=== PATIENT | female | born 1995 | race Caucasian/White ===

== ENCOUNTER 2016-04-22 17:32 | Emergency (ER) | payer OTHER ==
--- NOTE | 2016-04-22 18:07 | ED ---
General Adult HPI - General Chief complaint: OB/Uterine Contractions Stated complaint: ABDOMINAL PAIN, Time Seen by Provider: 04/22/16 17:57 Source: patient, RN notes reviewed Mode of arrival: ambulatory Limitations: no limitations - History of Present Illness Initial comments: Patient 20-year-old female who presents emergency room today with chief complaint of right-sided abdominal pain. Patient does admit that she took test at home was positive. Admits that last menstrual cycle was approximately 8 weeks ago. Patient states that she's had abdominal pain for the last 2 days. Patient denies anything that makes it better or worse. Admits to some nausea. Denies any vaginal bleeding or discharge. Patient one previous miscarriage. Patient denies any recent fever, chills, shortness of breath, chest pain, back pain, numbness or tingling, dysuria or hematuria, constipation or diarrhea, headaches or visual changes, or any other complaints. - Related Data Home Medications Medication Instructions Recorded Confirmed No Known Home Medications [No 04/22/16 04/22/16 Known Home Medications] Allergies Allergy/AdvReac Type Severity Reaction Status Date / Time Penicillins Allergy Swelling Verified 04/22/16 17:48 Review of Systems ROS Statement: Those systems with pertinent positive or pertinent negative responses have been documented in the HPI. ROS Other: All systems not noted in ROS Statement are negative. Past Medical History Past Medical History: No Reported History Additional Past Medical History / Comment(s): migraine headaches History of Any Multi-Drug Resistant Organisms: None Reported Past Surgical History: No Surgical Hx Reported Additional Past Surgical History / Comment(s): lip surgery, cyst removed from belly button Past Anesthesia/Blood Transfusion Reactions: No Reported Reaction Past Psychological History: ADD/ADHD, Bipolar, Depression Smoking Status: Former smoker Past Alcohol Use History: None Reported, Daily Past Drug Use History: None Reported General Exam - General Exam Comments Initial Comments: General: The patient is awake and alert, in no distress, and does not appear acutely ill. Eye: Pupils are equal, round and reactive to light, extra-ocular movements are intact. No nystagmus. There is normal conjunctiva bilaterally. No signs of icterus. Ears, nose, mouth and throat: There are moist mucous membranes and no oral lesions. Neck: The neck is supple, there is no tenderness or JVD. Cardiovascular: There is a regular rate and rhythm. No murmur, rub or gallop is appreciated. Respiratory: Lungs are clear to auscultation, respirations are non-labored, breath sounds are equal. No wheezes, stridor, rales, or rhonchi. Gastrointestinal: Soft, non-distended, non-tender abdomen without masses or organomegaly noted. There is no rebound or guarding present. No CVA tenderness. Bowel sounds are unremarkable. Musculoskeletal: Normal ROM, no tenderness. Strength 5/5. Sensation intact. Pulses equal bilaterally 2+. Neurological: A&O x 3. CN II-XII intact, There are no obvious motor or sensory deficits. Coordination appears grossly intact. Speech is normal. Skin: Skin is warm and dry and no rashes or lesions are noted. Psychiatric: Cooperative, appropriate mood & affect, normal judgment. Limitations: no limitations Course Vital Signs 04/22/16 04/22/16 04/22/16 17:34 18:23 18:32 Temperature 97 F L Pulse Rate 75 66 62 Respiratory 20 18 20 Rate Blood Pressure 115/64 109/69 106/61 O2 Sat by Pulse 100 100 100 Oximetry Medical Decision Making - Medical Decision Making Patient reevaluated at this time shows no signs of distress. No vaginal bleeding or discharge. Abdomen soft nontender on exam. Patient's ultrasound reveals no IUP. Does show a possible cystic structure to the left. Patient's pain on the right. Nontender at this time. Patient vitals are stable. Patient 's beta hCG 172. Patient will be discharged home advise close follow-up with OB [facility] in the next 1-2 days. Repeat beta hCG in 2 days. Advised return to emergency room if any symptoms increase worsen or for any other concerns. - Lab Data Result diagrams: 04/22/16 18:15 04/22/16 18:15 Lab Results 04/22/16 04/22/16 04/22/16 Range/Units 18:00 18:15 18:15 WBC 7.7 (4.0-11.0) k/uL RBC 4.29 (3.80-5.40) m/uL Hgb 13.6 (11.4-16.0) gm/dL Hct 40.0 (34.0-46.0) % MCV 93.1 (80.0-100.0) fL MCH 31.7 (25.0-35.0) pg MCHC 34.1 (31.0-37.0) g/dL RDW 12.3 (11.5-15.5) % Plt Count 281 (150-450) k/uL Neutrophils % 62 % Lymphocytes % 28 % Monocytes % 5 % Eosinophils % 3 % Basophils % 1 % Neutrophils # 4.7 (1.3-7.7) k/uL Lymphocytes # 2.1 (1.0-4.8) k/uL Monocytes # 0.4 (0-1.0) k/uL Eosinophils # 0.2 (0-0.7) k/uL Basophils # 0.1 (0-0.2) k/uL Sodium 141 (137-145) mmol/L Potassium 3.9 (3.5-5.1) mmol/L Chloride 106 (98-107) mmol/L Carbon Dioxide 23 (22-30) mmol/L Anion Gap 12 mmol/L BUN 6 L (7-17) mg/dL Creatinine 0.59 (0.52-1.04) mg/dL Est GFR (MDRD) Af Amer >60 (>60 ml/min/1.73 sqM) Est GFR (MDRD) Non-Af >60 (>60 ml/min/1.73 sqM) Glucose 74 (74-99) mg/dL Calcium 9.7 (8.4-10.2) mg/dL Total Bilirubin 0.5 (0.2-1.3) mg/dL AST 17 (14-36) U/L ALT 16 (9-52) U/L Alkaline Phosphatase 40 (38-126) U/L Total Protein 7.7 (6.3-8.2) g/dL Albumin 4.7 (3.5-5.0) g/dL HCG, Quant 172.8 mIU/mL Urine Color Light Yellow Urine Appearance Clear (Clear) Urine pH 7.5 (5.0-8.0) Ur Specific Ross 1.008 (1.001-1.035) Urine Protein Negative (Negative) Urine Glucose (UA) Negative (Negative) Urine Ketones Negative (Negative) Urine Blood Negative (Negative) Urine Nitrate Negative (Negative) Urine Bilirubin Negative (Negative) Urine Urobilinogen <2.0 (<2.0) mg/dL Ur Leukocyte Esterase Negative (Negative) Disposition Clinical Impression: Threatened Disposition: HOME SELF-CARE Condition: Good Instructions: Threatened Miscarriage (ED) Additional Instructions: Please follow-up with [facility] over the next 1-2 days. Please have repeat blood tests 2 days. Please return to emergency room if any symptoms increase worsen or for any other concerns. Referrals: Pari Cornejo DO [Primary Care Provider] - 1-2 days Matilde Richard MD [STAFF PHYSICIAN] - 1-2 days Time of Disposition: 19:23
[2016-04-22 18:10] LABS: Appearance,Urine Clear (Clear); Bilirubin,Urine Negative (Negative); Glucose,Urine (UA) Negative (Negative); Ketones,Urine Negative (Negative); Leukocyte Esterase,Urine Negative (Negative); Nitrite,Urine Negative (Negative); PH, Urine 7.5 (5.0-8.0); Protein,Urine Negative (Negative); Specific Gravity,Urine 1.008 (1.001-1.035); UA Billing (MACRO vs. MICRO) CHEM; Urobilinogen,Urine <2.0 mg/dL (<2.0)
[2016-04-22 18:26] LABS: Basophils # (A) 0.1 k/uL (0-0.2); Basophils % (A) 1 %; CH 31.4; CHCM 33.9; Eosinophils # (A) 0.2 k/uL (0-0.7); Eosinophils % (A) 3 %; HDW 2.24; HGB 13.6 gm/dL (11.4-16.0); Luc # (Auto) 0.16; Luc % (Auto) 2; Lymphocytes # (A) 2.1 k/uL (1.0-4.8); Lymphocytes % (A) 28 %; MCH 31.7 pg (25.0-35.0); MCHC 34.1 g/dL (31.0-37.0); MCV 93.1 fL (80.0-100.0); Mean Platelet Volume 7.5; Monocytes # (A) 0.4 k/uL (0-1.0); Monocytes % (A) 5 %; Neutrophils # (A) 4.7 k/uL (1.3-7.7); Neutrophils % (A) 62 %; RBC 4.29 m/uL (3.80-5.40); RDW 12.3 % (11.5-15.5); WBC 7.7 k/uL (4.0-11.0); WBC (Perox) 7.85
[2016-04-22] MEDS ORDERED: SODIUM CHLORIDE 0.9% 1,000 ML IV STA (18:27)
[2016-04-22 18:37] LABS: ALT 16 U/L (9-52); AST 17 U/L (14-36); Alkaline Phosphatase 40 U/L (38-126); Anion Gap 12 mmol/L; Blood Urea Nitrogen 6 mg/dL (7-17); Calcium 9.7 mg/dL (8.4-10.2); Carbon Dioxide 23 mmol/L (22-30); Chloride 106 mmol/L (98-107); Glucose 74 mg/dL (74-99); Non-African American GFR(MDRD) >60 (>60 ml/min/1.73 sqM); Potassium 3.9 mmol/L (3.5-5.1); Sodium 141 mmol/L (137-145); Total Bilirubin 0.5 mg/dL (0.2-1.3); Total Protein 7.7 g/dL (6.3-8.2)
[2016-04-22 18:53] LABS: HCG,Quantitative Serum 172.8 mIU/mL
--- NOTE | 2016-04-22 19:35 | US ---
EXAMINATION TYPE: US OB <=14 wks transvag DATE OF EXAM: 04/22/2016 7:03 PM COMPARISON: NONE CLINICAL HISTORY: Pain. pt states rlq pain x 2 days with prior miscarriage EXAM PERFORMED: Transvaginal (TV) and Transabdominal (TA) EXAM MEASUREMENTS: GESTATIONAL AGE / DATING Physician Established: not established yet Dates by LMP: unknown lmp Dates by First Scan: no previous Dates by Current Scan for: no iup seen on today's scan MATERNAL ANATOMY Uterus: 6.2 x 5.4 x 7.2cm, anteflexed Right Ovary: 4.1 x 2.2 x 2.2cm, wnl Left Ovary: 3.8 x 2.7 x 3.4cm with a 2.3cm solid appearing structure ?corpus luteum v hemorrhagic cys t v other Presence of free fluid: small amount with in the post cds GESTATION / SURVEY IUP: No IUP seen at this time Date of LMP: unknown Beta HcG (if available): n/a at time of exam TECHNOLOGIST IMPRESSION: no iup seen, left ovarian structure and small amount of free fluid warrants short term follow up with serial bhcg IMPRESSION: 1. No intrauterine identified. Ectopic is not excluded. Correlation with beta-hCG and follow-up is recommended. Very early is not excluded. 2. Possible solid lesion within the right ovary. Follow-up ultrasound is recommended.
[2016-04-22 20:03] VITALS: BP 97/63; PULSE 99; RESP 18; TEMP 98
== END 2016-04-22 20:02 | disposition home or self-care (01) ==
LOC: EC 17:32
DX: O20.0 Threatened abortion (principal); Z3A.08 8 weeks gestation of pregnancy; Z88.0 Allergy status to penicillin
CPT/HCPCS: 36415; 76801; 76817; 80053; 81003; 84702; 85025; 87086; 96360; 99284

== ENCOUNTER → 2016-04-25 | Outpatient (CLI) | payer OTHER | END | disposition home or self-care (01) | LOC: LABWHC1 16:27 | PROVIDERS: ATTEND Physician Assistant | DX: O20.0 Threatened abortion (principal) | CPT/HCPCS: 36415; 84702 ==

== ENCOUNTER 2016-05-07 14:13 | Emergency (ER) | payer OTHER ==
[2016-05-07] MEDS ORDERED: SODIUM CHLORIDE 0.9% 1,000 ML IV ONE (14:51)
--- NOTE | 2016-05-07 14:55 | ED ---
General Adult HPI - General Chief complaint: OB/Uterine Contractions Stated complaint: Abd Pain/6 weeks Time Seen by Provider: 05/07/16 14:33 Source: patient, RN notes reviewed, old records reviewed Mode of arrival: ambulatory Limitations: no limitations - History of Present Illness Initial comments: This is a 21-year-old female to the ER for evaluation of abdominal pain. Palpating cramping. Patient is known, non-confirmed IUP. Patient has had 2 ultrasounds and beta lab testing that is showing appropriate increasing per patient. Patient denies dysuria denies abdominal pain denies nausea vomiting. She does have mild abdominal cramping. This is patient's second , she is a - Related Data Home Medications Medication Instructions Recorded Confirmed [id number] Acid 1 cap PO DAILY 05/07/16 05/07/16 [-U Capsule (formulary)] Allergies Allergy/AdvReac Type Severity Reaction Status Date / Time Penicillins Allergy Swelling Verified 05/07/16 14:59 Review of Systems ROS Statement: Those systems with pertinent positive or pertinent negative responses have been documented in the HPI. ROS Other: All systems not noted in ROS Statement are negative. Past Medical History Past Medical History: No Reported History Additional Past Medical History / Comment(s): migraine headaches History of Any Multi-Drug Resistant Organisms: None Reported Past Surgical History: No Surgical Hx Reported Additional Past Surgical History / Comment(s): lip surgery, cyst removed from belly button Past Anesthesia/Blood Transfusion Reactions: No Reported Reaction Past Psychological History: ADD/ADHD, Bipolar, Depression Smoking Status: Former smoker Past Alcohol Use History: None Reported, Daily Past Drug Use History: None Reported General Exam Limitations: no limitations General appearance: alert, in no apparent distress Head exam: Present: atraumatic, normocephalic, normal inspection Eye exam: Present: normal appearance, PERRL, EOMI. Absent: scleral icterus, conjunctival injection, periorbital swelling ENT exam: Present: normal exam, mucous membranes moist Neck exam: Present: normal inspection. Absent: tenderness, meningismus, lymphadenopathy Respiratory exam: Present: normal lung sounds bilaterally. Absent: respiratory distress, wheezes, rales, rhonchi, stridor Cardiovascular Exam: Present: regular rate, normal rhythm, normal heart sounds. Absent: systolic murmur, diastolic murmur, rubs, gallop, clicks GI/Abdominal exam: Present: soft, normal bowel sounds. Absent: distended, tenderness, guarding, rebound, rigid Extremities exam: Present: normal inspection, full ROM, normal capillary refill. Absent: tenderness, pedal edema, joint swelling, calf tenderness Back exam: Present: normal inspection Neurological exam: Present: alert, oriented X3, CN II-XII intact Psychiatric exam: Present: normal affect, normal mood Skin exam: Present: warm, dry, intact, normal color. Absent: rash Course Vital Signs 05/07/16 14:23 Temperature 98.7 F Pulse Rate 81 Respiratory 20 Rate Blood Pressure 112/59 O2 Sat by Pulse 100 Oximetry - Reevaluation(s) Reevaluation #1: 05/07/16 14:55 prior Beta and ultrasounds are evaluated, SHOWING NO IUP, Reevaluation #2: 05/07/16 16:47 Patient's in no acute distress, spoke with right results and findings, patient' s questions are answered Medical Decision Making - Medical Decision Making 21 female here with abdominal cramping positive IUP normal normal , betas aggressively increasing, positive IUP on ultrasound - Lab Data Result diagrams: 05/07/16 15:20 05/07/16 15:20 Lab Results 05/07/16 05/07/16 05/07/16 Range/Units 15:20 15:20 15:20 WBC 7.6 (3.8-10.6) k/uL RBC 3.85 (3.80-5.40) m/uL Hgb 11.9 (11.4-16.0) gm/dL Hct 35.8 (34.0-46.0) % MCV 92.9 (80.0-100.0) fL MCH 30.8 (25.0-35.0) pg MCHC 33.2 (31.0-37.0) g/dL RDW 12.3 (11.5-15.5) % Plt Count 302 (150-450) k/uL Neutrophils % 79 % Lymphocytes % 14 % Monocytes % 5 % Eosinophils % 0 % Basophils % 0 % Neutrophils # 6.0 (1.3-7.7) k/uL Lymphocytes # 1.0 (1.0-4.8) k/uL Monocytes # 0.4 (0-1.0) k/uL Eosinophils # 0.0 (0-0.7) k/uL Basophils # 0.0 (0-0.2) k/uL PT (9.0-12.0) sec INR (<1.1) APTT (22.0-30.0) sec Sodium 140 (137-145) mmol/L Potassium 3.5 (3.5-5.1) mmol/L Chloride 105 (98-107) mmol/L Carbon Dioxide 24 (22-30) mmol/L Anion Gap 11 mmol/L BUN 8 (7-17) mg/dL Creatinine 0.55 (0.52-1.04) mg/dL Est GFR (MDRD) Af Amer >60 (>60 ml/min/1.73 sqM) Est GFR (MDRD) Non-Af >60 (>60 ml/min/1.73 sqM) Glucose 84 (74-99) mg/dL Calcium 9.1 (8.4-10.2) mg/dL Total Bilirubin 0.4 (0.2-1.3) mg/dL AST 15 (14-36) U/L ALT 23 (9-52) U/L Alkaline Phosphatase 33 L (38-126) U/L Total Protein 6.4 (6.3-8.2) g/dL Albumin 3.9 (3.5-5.0) g/dL HCG, Quant 02269.6 mIU/mL Blood Type O Positive Blood Type Recheck No 05/07/16 Range/Units 15:20 WBC (3.8-10.6) k/uL RBC (3.80-5.40) m/uL Hgb (11.4-16.0) gm/dL Hct (34.0-46.0) % MCV (80.0-100.0) fL MCH (25.0-35.0) pg MCHC (31.0-37.0) g/dL RDW (11.5-15.5) % Plt Count (150-450) k/uL Neutrophils % % Lymphocytes % % Monocytes % % Eosinophils % % Basophils % % Neutrophils # (1.3-7.7) k/uL Lymphocytes # (1.0-4.8) k/uL Monocytes # (0-1.0) k/uL Eosinophils # (0-0.7) k/uL Basophils # (0-0.2) k/uL PT 11.1 (9.0-12.0) sec INR 1.1 (<1.1) APTT 25.3 (22.0-30.0) sec Sodium (137-145) mmol/L Potassium (3.5-5.1) mmol/L Chloride (98-107) mmol/L Carbon Dioxide (22-30) mmol/L Anion Gap mmol/L BUN (7-17) mg/dL Creatinine (0.52-1.04) mg/dL Est GFR (MDRD) Af Amer (>60 ml/min/1.73 sqM) Est GFR (MDRD) Non-Af (>60 ml/min/1.73 sqM) Glucose (74-99) mg/dL Calcium (8.4-10.2) mg/dL Total Bilirubin (0.2-1.3) mg/dL AST (14-36) U/L ALT (9-52) U/L Alkaline Phosphatase (38-126) U/L Total Protein (6.3-8.2) g/dL Albumin (3.5-5.0) g/dL HCG, Quant mIU/mL Blood Type Blood Type Recheck - Radiology Data Radiology results: report reviewed (Ultrasound shows positive IUP), image reviewed Disposition Clinical Impression: Intrauterine Disposition: HOME SELF-CARE Condition: Good Instructions: (ED) Referrals: Pari Cornejo DO [Primary Care Provider] - 1-2 days
[2016-05-07 15:52] LABS: Basophils % (A) 0 %; CHCM 33.5; Eosinophils % (A) 0 %; HCT 35.8 % (34.0-46.0); HDW 2.19; HGB 11.9 gm/dL (11.4-16.0); Luc # (Auto) 0.12; Luc % (Auto) 2; Lymphocytes % (A) 14 %; MCH 30.8 pg (25.0-35.0); MCHC 33.2 g/dL (31.0-37.0); MCV 92.9 fL (80.0-100.0); Mean Platelet Volume 6.5; Monocytes # (A) 0.4 k/uL (0-1.0); Monocytes % (A) 5 %; Neutrophils % (A) 79 %; RBC 3.85 m/uL (3.80-5.40); RDW 12.3 % (11.5-15.5); WBC 7.6 k/uL (3.8-10.6); WBC (Perox) 7.69
[2016-05-07 15:55] LABS: ALT 23 U/L (9-52); AST 15 U/L (14-36); Alkaline Phosphatase 33 U/L (38-126); Anion Gap 11 mmol/L; Blood Urea Nitrogen 8 mg/dL (7-17); Calcium 9.1 mg/dL (8.4-10.2); Carbon Dioxide 24 mmol/L (22-30); Chloride 105 mmol/L (98-107); Glucose 84 mg/dL (74-99); Non-African American GFR(MDRD) >60 (>60 ml/min/1.73 sqM); Potassium 3.5 mmol/L (3.5-5.1); Sodium 140 mmol/L (137-145); Total Bilirubin 0.4 mg/dL (0.2-1.3); Total Protein 6.4 g/dL (6.3-8.2)
[2016-05-07 15:59] LABS: INR 1.1 (<1.1); Partial Thromboplastin Time 25.3 sec (22.0-30.0); Prothrombin Time 11.1 sec (9.0-12.0)
--- NOTE | 2016-05-07 16:26 | US ---
EXAMINATION TYPE: US OB <= 14 wk fetus DATE OF EXAM: 05/07/2016 4:06 PM COMPARISON: Recent ultrasound April 22, 2016 CLINICAL HISTORY: pain. RLQ pain with EXAM PERFORMED: Transabdominal (TA) pelvic ultrasound EXAM MEASUREMENTS: GESTATIONAL AGE / DATING Physician Established: not established Dates by LMP: unknown Dates by First Scan: 2 weeks ago, no IUP seen Dates by Current Scan for: (6 weeks/1 days) EDC: 12/30/2016 MATERNAL ANATOMY Uterus: 10.8 x 6.5 x 8.2 cm Right Ovary: 4.4 x 1.6 x 2.0 cm Left Ovary: 3.6 x 2.4 x 3.6 cm Post CDS / Adnexa: wnl Presence of free fluid: none Presence of corpus luteal cyst: left ovary measuring 2.3 x 2.1 x 2.4 cm GESTATION / SURVEY CRL: 0.4 cm (6 weeks/1 days) Yolk Sac (normal less than 6mm): 0.3 cm Heart Rate: 119 bpm Rhythm: Normal IUP: Viable IUP TECHNOLOGIST IMPRESSION: single viable IUP Single live intrauterine gestation is identified on the current study as gestational sac, yolk sac, a nd pole are identified. heart tones are regular measure 119 bpm which is lower limits of normal. Small amount of free fluid is seen in pelvic cul-de-sac on initial images. Both ovaries are identified. Within the left ovary there is rim hypervascular 2.3 cm hypoechoic lesio n felt to reflect corpus luteal cyst. There is no suspicious solid or cystic extraovarian adnexal mas s. IMPRESSION: Single live intrauterine gestation is now present, mean crown-rump length is 0.4 cm corresponding to 6 week 1 day old fetus.
[2016-05-07 16:36] LABS: HCG,Quantitative Serum 36318.6 mIU/mL
[2016-05-07 17:00] LABS: Amorphous Sediment,Urine Occasional /hpf; Appearance,Urine Cloudy (Clear); Bacteria,Urine Occasional /hpf; Bilirubin,Urine Negative (Negative); Glucose,Urine (UA) Negative (Negative); Ketones,Urine Negative (Negative); Leukocyte Esterase,Urine Negative (Negative); Mucus,Urine Rare /hpf; Nitrite,Urine Negative (Negative); PH, Urine 6.5 (5.0-8.0); Particle Count 3606; Protein,Urine Negative (Negative); RBC,Urine 1 /hpf (0-5); Specific Gravity,Urine 1.013 (1.001-1.035); Squamous Epithelial Cell,Urine 25 /hpf (0-4); UA Billing (MACRO vs. MICRO) MICRO; Urobilinogen,Urine <2.0 mg/dL (<2.0); WBC,Urine 6 /hpf (0-5)
[2016-05-07 17:16] VITALS: BP 107/53; PULSE 80; RESP 16; TEMP 98
== END 2016-05-07 17:15 | disposition home or self-care (01) ==
LOC: EC 14:13
DX: O99.89 Other specified diseases and conditions complicating pregnancy, childbirth and the puerperium (principal); R10.9 Unspecified abdominal pain; Z3A.01 Less than 8 weeks gestation of pregnancy; Z87.891 Personal history of nicotine dependence; Z79.899 Other long term (current) drug therapy; Z88.0 Allergy status to penicillin
CPT/HCPCS: 36415; 76801; 80053; 81001; 84702; 85025; 85610; 85730; 86900; 86901; 87086; 87491; 87591; 96360; 99284

== ENCOUNTER → 2016-06-09 | Outpatient (CLI) | payer OTHER ==
[2016-06-09 14:05] LABS: CH 30.9; CHCM 32.5; HCT 41.3 % (34.0-46.0); HDW 2.06; HGB 13.4 gm/dL (11.4-16.0); MCH 30.8 pg (25.0-35.0); MCHC 32.3 g/dL (31.0-37.0); MCV 95.4 fL (80.0-100.0); Mean Platelet Volume 6.5; RBC 4.33 m/uL (3.80-5.40); RDW 12.5 % (11.5-15.5); WBC 8.4 k/uL (3.8-10.6)
[2016-06-09 14:20] LABS: Glucose 74 mg/dL (74-99); Non-African American GFR(MDRD) >60 (>60 ml/min/1.73 sqM)
[2016-06-09 14:52] LABS: Hepatitis B Surface Ag Index 0.05
[2016-06-10 08:07] LABS: HIV-1/HIV-2 Ab Screen NONREAC (NON REAC)
== END | disposition home or self-care (01) ==
LOC: LABWHC1 13:44
PROVIDERS: ATTEND Obstetrics & Gynecology
DX: O26.811 Pregnancy related exhaustion and fatigue, first trimester (principal); Z3A.00 Weeks of gestation of pregnancy not specified
CPT/HCPCS: 36415; 82565; 82947; 85027; 86762; 86780; 86850; 86900; 86901; 87340; 87389

== ENCOUNTER → 2016-07-04 | Outpatient (CLI) | payer OTHER ==
--- NOTE | 2016-07-05 09:46 | US ---
EXAMINATION TYPE: US OB <= 14 wk fetus DATE OF EXAM: 07/04/2016 2:17 PM COMPARISON: NONE CLINICAL HISTORY: Missed O02.1, Z36 F/U abnormal US. No heart tones at office on Sunday, [facility] eduled for D&C EXAM PERFORMED: OBTA EXAM MEASUREMENTS: GESTATIONAL AGE / DATING Physician Established: not established Dates by LMP: unknown Dates by First Scan: (14 weeks/3 days) EDC: 12/30/2016 Dates by Current Scan for: (9 weeks/4 days) EDC: Not viable MATERNAL ANATOMY Uterus: 16.6 x 9.0 x 7.9cm Right Ovary: not seen due to enlarged UT and bowel gas Left Ovary: wnl Post CDS / Adnexa: wnl Presence of free fluid: no Presence of corpus luteal cyst: not seen Presence of subchorionic bleed: no GESTATION / SURVEY CRL: 2.7 (9 weeks/4 days) MSD: wnl Yolk Sac (normal less than 6mm): not seen Heart Rate: not detected IUP: Demise IMPRESSION: Discrepancy between the last menstrual period and dating by current measurements and nonvisualization of cardiac activity. Intrauterine demise is present.
== END | disposition home or self-care (01) ==
LOC: RADUSWWP 13:56
PROVIDERS: ATTEND Obstetrics & Gynecology
DX: O02.1 Missed abortion (principal)
CPT/HCPCS: 76801

== ENCOUNTER 2016-07-07 07:05 | Day surgery (SDC) | payer OTHER ==
[2016-07-05 12:11] VITALS: BMI 19.6
--- NOTE | 2016-07-06 16:07 | P.HPOB ---
History of Present Illness H&P Date: 07/06/16 Chief Complaint: missed 21 year old presents for suction D&C due to missed . US showed 9 weeks with no heart tones. Review of Systems All systems: negative Constitutional: Denies chills, Denies fever Eyes: denies blurred vision, denies pain Ears, nose, mouth and throat: Denies headache, Denies sore throat Cardiovascular: Denies chest pain, Denies shortness of breath Respiratory: Denies cough Gastrointestinal: Denies abdominal pain, Denies diarrhea, Denies nausea, Denies vomiting Genitourinary: Denies dysuria, Denies hematuria Musculoskeletal: Denies myalgias Integumentary: Denies pruritus, Denies rash Neurological: Denies numbness, Denies weakness Psychiatric: Denies anxiety, Denies depression Endocrine: Denies fatigue, Denies weight change Past Medical History Past Medical History: No Reported History Additional Past Medical History / Comment(s): migraine headaches History of Any Multi-Drug Resistant Organisms: None Reported Past Surgical History: No Surgical Hx Reported Additional Past Surgical History / Comment(s): lip surgery," cyst removed from belly button" Past Anesthesia/Blood Transfusion Reactions: No Reported Reaction Past Psychological History: ADD/ADHD, Bipolar, Depression Smoking Status: Current every day smoker Past Alcohol Use History: Rare Additional Past Alcohol Use History / Comment(s): STARTED SMOKING AT AGE 19 SMOKES 3-4CIG A DAY Past Drug Use History: Marijuana - Past Family History Mother Family Medical History: No Reported History Medications and Allergies Home Medications Medication Instructions Recorded Confirmed Type No Known Home Medications [No 07/05/16 07/05/16 History Known Home Medications] Allergies Allergy/AdvReac Type Severity Reaction Status Date / Time Penicillins Allergy Swelling Verified 07/05/16 11:22 Exam Osteopathic Statement: *. No significant issues noted on an osteopathic structural exam other than those noted in the History and Physical/Consult. HEart: RRR Lungs: CTAB ABdomen: soft, nontender Extremeties: neg lorenza's Assessment and Plan (1) Missed Status: Acute Plan: 1. Suction D&C
[~2016-07-07 07:05] MED LIST: Pre Op ABX Message 1 EACH MISC MISCELLANE ONE
[2016-07-07] MEDS ORDERED: LIDOCAINE 1% 20 ML VIAL (10MG/ML) FOR IV START INTRADERMA ONE (07:29)
[2016-07-07] MEDS ORDERED: LACTATED RINGERS 1,000 ML IV ONE (07:29)
[2016-07-07] MEDS ORDERED: LACTATED RINGERS 1,000 ML IV SCH (07:45)
[2016-07-07] MEDS ORDERED: DEXAMETHASONE SOD PHOSPHATE 10 MG/ML 1 ML VIAL IV ONE (07:45)
[2016-07-07] MEDS ORDERED: HYDROmorphone 1 MG/ML 1 ML SYRINGE IVP PRN (07:45)
[2016-07-07] MEDS ORDERED: ONDANSETRON 4 MG/2 ML VIAL IVP ONE (07:45)
[2016-07-07] MEDS ORDERED: SCOPOLAMINE 1.5MG/72HR PATCH TRANSDERM ONE (07:45)
[2016-07-07] MEDS ORDERED: LIDOCAINE 1% 20 ML VIAL (10MG/ML) FOR IV START INTRADERMA PRN (07:45)
[2016-07-07] MEDS ORDERED: fentaNYL (PF) 50 MCG/ML 2 ML AMP ONE (07:50)
[2016-07-07] MEDS ORDERED: KETOROLAC 30 MG/ML 1 ML VIAL ONE (07:50)
[2016-07-07] MEDS ORDERED: MIDAZOLAM 2 MG/2 ML VIAL ONE (07:50)
[2016-07-07] MEDS ORDERED: PROPOFOL 10 MG/ML 20 ML VIAL IV ONE (07:50)
[2016-07-07] MEDS ORDERED: LIDOCAINE 1% INJ 10MG/ML (20 ML MDV) ONE (07:50)
--- NOTE | 2016-07-07 08:17 | P.OP ---
Date of Procedure: 07/07/16 Preoperative Diagnosis: 1. Missed Postoperative Diagnosis: 1. Missed Procedure(s) Performed: Suction D&C Implants: Anesthesia: MAC Surgeon: Priti Tyson Estimated Blood Loss (ml): 200 IV fluids (ml): 400 Urine output (ml): 50 Pathology: other (Uterine contents) Condition: stable Disposition: PACU Indications for Procedure: Operative Findings: Description of Procedure: Patient taken the operating room where general anesthesia was attained without difficulty. She was prepped and draped in normal sterile fashion in dorsal lithotomy position, legs placed in the candycane stirrups. Bladder was drained of all urine. Weighted speculum placed in the vagina and the anterior lip the cervix was grasped with a single-tooth tenaculum. The cervix was dilated to # 10 Hegar dilator. A #9 curved suction curet was introduced into the uterus and passed several times to remove blood and tissue. At one point there was a piece of tissue hanging out of the cervix and then was grasped with some ring forceps and easily removed. Sharp curet was gently used to ensure all tissue had been removed from the uterus. The suction curet was introduced into the uterus again to ensure all blood and tissue were removed. Excellent hemostasis was assured and all instruments removed from the vagina. Patient tolerated the procedure well, sponge and instrument counts were correct 2 and she was taken to recovery room in stable condition.
[2016-07-07 08:33] VITALS: RESP 18; TEMP 97.2
[2016-07-07 09:16] VITALS: PULSE 71
[2016-07-07 09:40] VITALS: BP 100/68
== END 2016-07-07 10:21 | disposition home or self-care (01) ==
LOC: OR 07:05
PROVIDERS: ATTEND Obstetrics & Gynecology
DX: O02.1 Missed abortion (principal); Z3A.09 9 weeks gestation of pregnancy; F17.210 Nicotine dependence, cigarettes, uncomplicated; Z88.0 Allergy status to penicillin
CPT/HCPCS: 88305; 59820; J2250; J2405; J2001; J3010; J1885; J1170; J2704

== ENCOUNTER 2016-11-09 15:58 | Emergency (ER) | payer OTHER ==
[2016-11-09] MEDS ORDERED: SODIUM CHLORIDE 0.9% 500 ML IV STA (16:50)
[2016-11-09] MEDS ORDERED: PANTOPRAZOLE 40 MG/10 ML VIAL IVP STA (16:50)
[2016-11-09] MEDS ORDERED: SODIUM CHLORIDE 0.9% 1,000 ML IV STA (16:50)
[2016-11-09] MEDS ORDERED: METOCLOPRAMIDE 5 MG/ML 2 ML VIAL IVP STA (16:50)
[2016-11-09] MEDS ORDERED: MAG HYDROX/AL HYDROX/SIMETH 30 ML, HYOSCYAMINE ELIXIR 10 ML, CIMETIDINE HCL 300 MG PO STA ×3 (16:50)
[2016-11-09 17:15] LABS: Appearance,Urine Clear (Clear); Basophils % (A) 1 %; Bilirubin,Urine Negative (Negative); CH 30.8; CHCM 31.9; Eosinophils # (A) 0.1 k/uL (0-0.7); Eosinophils % (A) 2 %; Glucose,Urine (UA) Negative (Negative); HCT 46.3 % (34.0-46.0); HDW 2.07; HGB 14.8 gm/dL (11.4-16.0); Ketones,Urine Negative (Negative); Leukocyte Esterase,Urine Negative (Negative); Luc # (Auto) 0.13; Luc % (Auto) 2; Lymphocytes # (A) 1.4 k/uL (1.0-4.8); Lymphocytes % (A) 23 %; Mean Platelet Volume 6.7; Monocytes # (A) 0.4 k/uL (0-1.0); Monocytes % (A) 7 %; Neutrophils # (A) 4.1 k/uL (1.3-7.7); Neutrophils % (A) 66 %; Nitrite,Urine Negative (Negative); PH, Urine 7.5 (5.0-8.0); Protein,Urine Negative (Negative); RBC 4.78 m/uL (3.80-5.40); RDW 12.2 % (11.5-15.5); Specific Gravity,Urine 1.002 (1.001-1.035); UA Billing (MACRO vs. MICRO) CHEM; Urobilinogen,Urine <2.0 mg/dL (<2.0); WBC 6.3 k/uL (3.8-10.6); WBC (Perox) 6.29
[2016-11-09 17:33] LABS: ALT 25 U/L (9-52); AST 19 U/L (14-36); Alkaline Phosphatase 45 U/L (38-126); Amylase 50 U/L (30-110); Anion Gap 12 mmol/L; Blood Urea Nitrogen 6 mg/dL (7-17); Calcium 9.7 mg/dL (8.4-10.2); Carbon Dioxide 24 mmol/L (22-30); Chloride 104 mmol/L (98-107); Glucose 90 mg/dL (74-99); Non-African American GFR(MDRD) >60 (>60 ml/min/1.73 sqM); Potassium 3.6 mmol/L (3.5-5.1); Sodium 140 mmol/L (137-145); Total Bilirubin 0.4 mg/dL (0.2-1.3); Total Protein 7.3 g/dL (6.3-8.2)
--- NOTE | 2016-11-09 18:14 | ED ---
General Adult HPI - General Chief complaint: Abdominal Pain Stated complaint: abdominal pain Time Seen by Provider: 11/09/16 16:36 Source: patient, family, RN notes reviewed Mode of arrival: ambulatory Limitations: no limitations - History of Present Illness Initial comments: Chief complaint history of present illness is a 21-year-old female who presents with complaint of epigastric discomfort on again off again for 2 weeks. Patient took some Pepto-Bismol earlier which did help but that she vomited. Nausea and vomiting but no diarrhea. Patient states the vomit looked greenish in color did not look like there is blood or coffee ground material in it. She has not had black stool or diarrhea. - Related Data Previous Rx's Medication Instructions Recorded Famotidine [Pepcid] 20 mg PO DAILY #30 tablet 11/09/16 Ondansetron Odt [Zofran Odt] 4 mg PO Q8HR PRN #10 tab 11/09/16 Allergies Allergy/AdvReac Type Severity Reaction Status Date / Time Penicillins Allergy Swelling Verified 11/09/16 17:36 Review of Systems ROS Statement: Those systems with pertinent positive or pertinent negative responses have been documented in the HPI. Review of systems. No headache or visual acuity changes no chest pain. She has epigastric discomfort. Occasionally goes through to the back. No diarrhea. No neuro deficits. All systems are reviewed. Past medical problems migraines. She's had surgeries are D&C this past June. Family history cancers of unknown types. Patient reports she had a rash with penicillin as a child. Patient states she smokes on occasion strongly encouraged to stop. Drinks occasionally 2-3 beers a day. This also was told to stop. ROS Other: All systems not noted in ROS Statement are negative. Past Medical History Past Medical History: No Reported History Additional Past Medical History / Comment(s): migraine headaches History of Any Multi-Drug Resistant Organisms: None Reported Past Surgical History: No Surgical Hx Reported Additional Past Surgical History / Comment(s): lip surgery, cyst removed from belly button Past Anesthesia/Blood Transfusion Reactions: No Reported Reaction Past Psychological History: ADD/ADHD, Bipolar, Depression Smoking Status: Current every day smoker Past Alcohol Use History: Daily Past Drug Use History: None Reported General Exam - General Exam Comments Initial Comments: General: The patient is awake and alert, complaining of epigastric discomfort. Appears to be gastritis. Vital signs temperature 98.4 pulse 59 respiratory rate 18 pulse ox on percent room air blood pressure 116/72 Eye: Pupils are equal, round and reactive to light, extra-ocular movements are intact ; there is normal conjunctiva bilaterally. No signs of icterus. Ears, nose, mouth and throat: There are moist mucous membranes and no oral lesions. Neck: The neck is supple, there is no tenderness or JVD. Cardiovascular: There is a regular rate and rhythm. No murmur, rub or gallop is appreciated. Respiratory: Lungs are clear to auscultation, respirations are non-labored, breath sounds are equal. No wheezes, stridor, rales, or rhonchi. Gastrointestinal: Soft, non-distended, mild tenderness deep palpation of the epigastric region. There is no rebound or guarding present. No CVA tenderness. Bowel sounds are unremarkable. Back: There is no tenderness to palpation in the midline. There is no obvious deformity. No rashes noted. Musculoskeletal: Normal ROM, no tenderness, There is no pedal edema. There is no calf tenderness or swelling. Sensation intact. Pulses equal bilaterally 2+. Neurological: No neuro deficits Skin: Skin is warm and dry and no rashes or lesions are noted. Limitations: no limitations Course Vital Signs 11/09/16 16:30 Temperature 98.4 F Pulse Rate 59 L Respiratory 18 Rate Blood Pressure 116/72 O2 Sat by Pulse 100 Oximetry Medical Decision Making - Medical Decision Making Patient received medications including IV fluids, protonic's, Reglan which made her feel hot and flushed. And GI cocktail. Patient reports is no pain after having had those medications. We did discuss gastritis. Labs show normal white count 6.3 hemoglobin 14.8 hematocrit of 46. Potassium 3.6. BUN 6 creatinine 0.6 GFR greater than 60. Glucose 90. Urine clean no signs of infection. Urine test negative. Discuss gastritis and the patient is to refrain from smoking and no alcohol. Advised not use any nonsteroidal anti-inflammatories and explained why. She is to use antacids as needed one hour after meals and at bedtime. She'll also be placed on Pepcid daily. Advised follow-up with family physician. If she continues having repeated episodes of gastritis endoscopy will be recommended. - Lab Data Result diagrams: 11/09/16 16:54 11/09/16 16:54 Lab Results 11/09/16 11/09/16 11/09/16 Range/Units 16:54 16:54 16:54 WBC 6.3 (3.8-10.6) k/uL RBC 4.78 (3.80-5.40) m/uL Hgb 14.8 (11.4-16.0) gm/dL Hct 46.3 H (34.0-46.0) % MCV 97.0 (80.0-100.0) fL MCH 31.0 (25.0-35.0) pg MCHC 32.0 (31.0-37.0) g/dL RDW 12.2 (11.5-15.5) % Plt Count 330 (150-450) k/uL Neutrophils % 66 % Lymphocytes % 23 % Monocytes % 7 % Eosinophils % 2 % Basophils % 1 % Neutrophils # 4.1 (1.3-7.7) k/uL Lymphocytes # 1.4 (1.0-4.8) k/uL Monocytes # 0.4 (0-1.0) k/uL Eosinophils # 0.1 (0-0.7) k/uL Basophils # 0.0 (0-0.2) k/uL Sodium 140 (137-145) mmol/L Potassium 3.6 (3.5-5.1) mmol/L Chloride 104 (98-107) mmol/L Carbon Dioxide 24 (22-30) mmol/L Anion Gap 12 mmol/L BUN 6 L (7-17) mg/dL Creatinine 0.60 (0.52-1.04) mg/dL Est GFR (MDRD) Af Amer >60 (>60 ml/min/1.73 sqM) Est GFR (MDRD) Non-Af >60 (>60 ml/min/1.73 sqM) Glucose 90 (74-99) mg/dL Calcium 9.7 (8.4-10.2) mg/dL Total Bilirubin 0.4 (0.2-1.3) mg/dL AST 19 (14-36) U/L ALT 25 (9-52) U/L Alkaline Phosphatase 45 (38-126) U/L Total Protein 7.3 (6.3-8.2) g/dL Albumin 4.5 (3.5-5.0) g/dL Amylase 50 (30-110) U/L Lipase 58 (23-300) U/L Urine Color Colorless Urine Appearance Clear (Clear) Urine pH 7.5 (5.0-8.0) Ur Specific [place] 1.002 (1.001-1.035) Urine Protein Negative (Negative) Urine Glucose (UA) Negative (Negative) Urine Ketones Negative (Negative) Urine Blood Negative (Negative) Urine Nitrite Negative (Negative) Urine Bilirubin Negative (Negative) Urine Urobilinogen <2.0 (<2.0) mg/dL Ur Leukocyte Esterase Negative (Negative) Urine HCG, Qual (Not Detectd) 11/09/16 Range/Units 16:54 WBC (3.8-10.6) k/uL RBC (3.80-5.40) m/uL Hgb (11.4-16.0) gm/dL Hct (34.0-46.0) % MCV (80.0-100.0) fL MCH (25.0-35.0) pg MCHC (31.0-37.0) g/dL RDW (11.5-15.5) % Plt Count (150-450) k/uL Neutrophils % % Lymphocytes % % Monocytes % % Eosinophils % % Basophils % % Neutrophils # (1.3-7.7) k/uL Lymphocytes # (1.0-4.8) k/uL Monocytes # (0-1.0) k/uL Eosinophils # (0-0.7) k/uL Basophils # (0-0.2) k/uL Sodium (137-145) mmol/L Potassium (3.5-5.1) mmol/L Chloride (98-107) mmol/L Carbon Dioxide (22-30) mmol/L Anion Gap mmol/L BUN (7-17) mg/dL Creatinine (0.52-1.04) mg/dL Est GFR (MDRD) Af Amer (>60 ml/min/1.73 sqM) Est GFR (MDRD) Non-Af (>60 ml/min/1.73 sqM) Glucose (74-99) mg/dL Calcium (8.4-10.2) mg/dL Total Bilirubin (0.2-1.3) mg/dL AST (14-36) U/L ALT (9-52) U/L Alkaline Phosphatase (38-126) U/L Total Protein (6.3-8.2) g/dL Albumin (3.5-5.0) g/dL Amylase (30-110) U/L Lipase (23-300) U/L Urine Color Urine Appearance (Clear) Urine pH (5.0-8.0) Ur Specific [place] (1.001-1.035) Urine Protein (Negative) Urine Glucose (UA) (Negative) Urine Ketones (Negative) Urine Blood (Negative) Urine Nitrite (Negative) Urine Bilirubin (Negative) Urine Urobilinogen (<2.0) mg/dL Ur Leukocyte Esterase (Negative) Urine HCG, Qual Not Detected (Not Detectd) Disposition Clinical Impression: Acute gastritis Disposition: HOME SELF-CARE Condition: Fair Instructions: Gastritis (ED), Diet for Stomach Ulcers and Gastritis (ED) Additional Instructions: Use antacids as needed, one hour after meals and at bedtime. Take Pepcid daily. Do not use any nonsteroidal anti-inflammatories. Follow with family physician. Recommended she get endoscopy if the gastritis persists for 1 month. Prescriptions: Famotidine [Pepcid] 20 mg PO DAILY #30 tablet Ondansetron Odt [Zofran Odt] 4 mg PO Q8HR PRN #10 tab PRN Reason: Nausea vomiting Referrals: Pari Cornejo DO [Primary Care Provider] - 1-2 days Time of Disposition: 18:14
--- NOTE | 2016-11-09 18:19 | XR ---
EXAMINATION TYPE: XR abdomen 2V DATE OF EXAM: 11/09/2016 COMPARISON: NONE HISTORY: Abdominal pain TECHNIQUE: 2 views FINDINGS: There is no sign of intestinal obstruction or pneumoperitoneum. Fecal pattern is normal. Th ere is oral contrast in the colon. There is no sign of a mass. There are no pathologic calcifications over the kidneys. Lung bases are clear. IMPRESSION: Nonacute abdomen.
[2016-11-09 18:24] VITALS: BP 110/65; PULSE 62; RESP 16; TEMP 98.5
== END 2016-11-09 18:46 | disposition home or self-care (01) ==
LOC: EC 15:58
DX: K29.00 Acute gastritis without bleeding (principal); F17.200 Nicotine dependence, unspecified, uncomplicated; Z88.0 Allergy status to penicillin
CPT/HCPCS: 36415; 80053; 82150; 83690; 85025; 81003; 81025; 87086; 74020; 99284; 96374; 96375; 96361 ×2; J2765; C9113

== ENCOUNTER 2017-06-17 18:12 | Emergency (ER) | payer OTHER ==
[2017-06-17 19:00] VITALS: BP 105/56; PULSE 81; RESP 18; TEMP 98.3
--- NOTE | 2017-06-17 19:38 | XR ---
EXAMINATION TYPE: XR ankle complete RT DATE OF EXAM: 06/17/2017 CLINICAL HISTORY: Fall with pain. TECHNIQUE: Frontal, lateral and oblique images of the right ankle are obtained. COMPARISON: None. FINDINGS: There is no acute fracture/dislocation evident in the right ankle. The ankle mortise appe ars within normal limits. The overlying soft tissue appears unremarkable. IMPRESSION: There is no acute fracture or dislocation in the right ankle.
--- NOTE | 2017-06-17 20:12 | ED ---
General Adult HPI - General Chief complaint: Extremity Injury, Lower Stated complaint: Ankle Injury Time Seen by Provider: 06/17/17 20:04 Source: patient, RN notes reviewed Mode of arrival: wheelchair Limitations: no limitations - History of Present Illness Initial comments: 22-year-old female presents to the emergency department for chief complaint of right ankle injury. Patient states she was walking in the driveway about an hour ago when her mom tried to grab her arm and she just tripped backwards and fell with her right ankle. Patient denies any other injuries. Patient denies hitting her head or losing consciousness. Patient states she doesn't think her ankle is broken and she just thinks it sprained. Patient has never had surgery on the ankle. Patient states she is 20 weeks . Patient has no other complaints at this time including shortness of breath, chest pain, abdominal pain, nausea or vomiting. - Related Data Allergies Allergy/AdvReac Type Severity Reaction Status Date / Time Penicillins Allergy Swelling Verified 06/17/17 19:00 Review of Systems ROS Statement: Those systems with pertinent positive or pertinent negative responses have been documented in the HPI. ROS Other: All systems not noted in ROS Statement are negative. Past Medical History Past Medical History: No Reported History Additional Past Medical History / Comment(s): migraine headaches History of Any Multi-Drug Resistant Organisms: None Reported Past Surgical History: No Surgical Hx Reported Additional Past Surgical History / Comment(s): lip surgery, cyst removed from belly button, D&C Past Anesthesia/Blood Transfusion Reactions: No Reported Reaction Past Psychological History: ADD/ADHD, Bipolar, Depression Smoking Status: Never smoker Past Alcohol Use History: None Reported Past Drug Use History: None Reported General Exam Limitations: no limitations General appearance: alert, in no apparent distress Respiratory exam: Present: normal lung sounds bilaterally. Absent: respiratory distress, wheezes, rales, rhonchi, stridor Cardiovascular Exam: Present: regular rate, normal rhythm, normal heart sounds. Absent: systolic murmur, diastolic murmur, rubs, gallop, clicks Extremities exam: Present: full ROM (Full range of motion of the right ankle including flexion and extension inversion and eversion.), normal capillary refill (Refill less than 2 seconds in the right lower extremity. Pedal pulse 2+ .), other (Full sensation in the right ankle.). Absent: tenderness (very mild tenderness to the medial or lateral malleolus of the right ankle. No tenderness in the rest of the foot.), joint swelling (No swelling or ecchymosis noted of the right ankle.) Course Vital Signs 06/17/17 18:57 Temperature 98.3 F Pulse Rate 81 Respiratory 18 Rate Blood Pressure 105/56 O2 Sat by Pulse 98 Oximetry Medical Decision Making - Medical Decision Making 22-year-old female presents to the emergency department for a chief complaint of right ankle pain 1 hour. Patient states she fell in the driveway in her ankle. Patient denies head injury or any other injuries. There is no swelling or ecchymosis of the ankle. Very minimal tenderness. Patient is able to walk on it. X-ray demonstrates no acute fractures or dislocations. Patient will return to the emergency Department if she has any worsening symptoms. Otherwise she will take Tylenol for pain relief as she is . She was advised not to take Motrin. She will ice the ankle and keep it elevated. Patients ankle was wrapped with an Crow wrap while in the emergency department. She will follow up with primary care in 1-2 days. Disposition Clinical Impression: Ankle injury Disposition: HOME SELF-CARE Instructions: Ankle Sprain (ED) Additional Instructions: Please take Tylenol for pain relief. Do not take Motrin. You may ice, rest, and elevate the ankle. You may keep it wrapped with an Crow wrap. Please return to the emergency department if you have any worsening symptoms. Otherwise follow-up with primary care in 1-2 days. Is patient prescribed a controlled substance at d/c from ED?: No Referrals: Pari Cornejo DO [Primary Care Provider] - 1-2 days Time of Disposition: 20:11
== END 2017-06-17 20:23 | disposition home or self-care (01) ==
LOC: EC 18:12
DX: O9A.212 Injury, poisoning and certain other consequences of external causes complicating pregnancy, second trimester (principal); S99.911A Unspecified injury of right ankle, initial encounter; Z88.0 Allergy status to penicillin; Z3A.20 20 weeks gestation of pregnancy; W01.0XXA Fall on same level from slipping, tripping and stumbling without subsequent striking against object, initial encounter; Y92.093 Driveway of other non-institutional residence as the place of occurrence of the external cause
CPT/HCPCS: 99283

== ENCOUNTER 2017-09-19 16:59 | Outpatient (CLI) | payer OTHER ==
[2017-09-19 18:53] VITALS: BP 111/65; PULSE 83; RESP 18; TEMP 98.1
--- NOTE | 2017-09-20 06:30 | P.MSEPDOC ---
Presenting Problems - Arrival Data Date of Arrival on Unit: 09/19/17 Time of Arrival on Unit: 17:00 Mode of Transport: Ambulatory - Complaint OB-Reason for Admission/Chief Complaint: Pain, Other Comment: period cramps, pt states concerns that her s.o. has Chlamydia, requesting testing. Pt also verbalizes thoughts of self harm with hx of depression since age 15, no current intervention or medication. Medical History - Information : 3 Para: 0 Term: 0 : 0 Abortions: Spontaneous or Elective: 2 Number of Living Children: 0 - Gestational Age Gestational Age by ELISEO (wks/days): 33 Weeks and 3 Days - History Complications: Smoker Review of Systems - Review of Systems Constitutional: No problems Breast: No problems ENT: No problems Cardiovascular: No problems Respiratory: No problems Gastrointestinal: No problems Genitourinary: No problems Musculoskeletal: No problems Neurological: No problems Skin: No problems Vital Signs - Temperature Temperature: 98.1 F Temperature Source: Temporal Artery Scan - Pulse Right Sitting Brachial Pulse Rate: 83 Pulse Assessment Method: Automatic Cuff - Respirations Respiratory Rate: 18 Oxygen Delivery Method: Room Air O2 Sat by Pulse Oximetry: 97 - Blood Pressure Right Arm Sitting Blood Pressure: 111/65 Blood Pressure Mean: 80 Blood Pressure Source: Automatic Cuff Medical Screen Scoring (Pre) - Cervical Exam Dilation: Exam Deferred Effacement: Exam Deferred Membranes: Intact - Uterine Contractions Frequency: < 36 weeks = 6 Duration: > 40 seconds = 2 Intensity: N/A - Maternal Vital Signs Maternal Temperature: N/A Maternal Blood Pressure: N/A Signs of Preeclampsia: N/A Maternal Respirations: N/A - Pain Assessment Pain Scale Used: Numeric (1 - 10) Pain Intensity: 0 Pain Management Goal: 3 Pain Description: Cramping Pain Radiation Location: none Pain Frequency: Occasional Pain Duration: 10 Pain Duration Units: Minutes Pain Behavior: None Exhibited Effects of Pain: none Pain Aggravating Factors: Contractions - Maternal Trauma Maternal Trauma: N/A - Assessment Baseline FHR: 135 Heart Rate - NICHD Category: Category I (Normal) = 0 NST: Reactive Position: N/A, Non-vertex & not laboring = 3 - Total Score Total Score (Pre): 11 - Level of Risk Level of Risk: Medium (6-9) Physician Notification (Pre) - Physician Notified Physician Notified Date: 09/19/17 Physician Notified Time: 18:07 Physician/Practitioner Notifed:: Dr Jones Spoke With: Dr Jones New Order Received: Yes - Notification Comment Comment: Send Chlamydia culture, send FFN. Pt may be discharged to ER for psych eval if FFN negative. Physician Notification (Post) - Notification Comment Comment: Pt to [facility] for psych eval, chlamydia cultures pending. FFN negative. Pt to call for follow up appt with Dr Tyson. Return with continued or increasing symptoms. Disposition - Disposition OB Disposition: Transfer to other dept./facility Transferred to:: [facility] Discharge Date: 09/19/17 Discharge Time: 19:12 I agree with the RN Medical Screening Exam: Yes Risk & Benefit of care provided described in d/c instruction: Yes Diagnosis: FALSE LABOR BEFORE 37 COMPLETED WEEKS OF GEST, THIRD TRI
[2017-09-20 14:36] LABS: C. trachomatis,PCR Negative (Neg,Equiv); Chlamydia trachomatis Source Cervix
== END 2017-09-19 19:13 | disposition home or self-care (01) ==
LOC: FBPOP 16:59
PROVIDERS: ATTEND Obstetrics & Gynecology
DX: O47.03 False labor before 37 completed weeks of gestation, third trimester (principal); O99.333 Smoking (tobacco) complicating pregnancy, third trimester; Z3A.33 33 weeks gestation of pregnancy
CPT/HCPCS: 59025; 82731; 87491; 87591; 99213; 99283

== ENCOUNTER 2017-09-19 19:17 | Emergency (ER) | payer OTHER ==
[2017-09-19 19:31] VITALS: BP 109/69; PULSE 94; RESP 18; TEMP 98.2
--- NOTE | 2017-09-19 19:54 | ED ---
Female Urogenital HPI - General Chief complaint: Urogenital Stated complaint: STD check Time Seen by Provider: 09/19/17 19:28 Source: patient Mode of arrival: ambulatory Limitations: no limitations - History of Present Illness Initial comments: this is a 22-year-old female who is 34 weeks who presents today for chief complaint of STD check. Patient states that she was just a mother baby floor for contractions however she was cleared for discharge. She mentioned to them that she was concerned about STD because her boyfriend was cheating on her. Mother baby called and stated that they were sending her down because of failed depression screening, however patient denies any thoughts of self-harm, increased depression,suicidal or homicidal ideations/plans. patient states that she simply wants a urine STD check, because she just had a pelvic, the baby and they did not perform STD testing. Patient admits clearish discharge, but states that she thinks this is normal. Denies fever, chills, external genitalia irritation, lesions or pain of the external genitalia/vagina, vaginal odor, vaginal bleeding, dysuria, urgency, frequency, abdominal pain, or any other symptoms - Related Data Home Medications Medication Instructions Recorded Confirmed No Known Home Medications 09/19/17 09/19/17 Allergies Allergy/AdvReac Type Severity Reaction Status Date / Time Penicillins Allergy Swelling Verified 09/19/17 19:31 Review of Systems ROS Statement: Those systems with pertinent positive or pertinent negative responses have been documented in the HPI. ROS Other: All systems not noted in ROS Statement are negative. Constitutional: Denies: fever, chills, night sweats ENT: Denies: throat pain Respiratory: Denies: cough Cardiovascular: Denies: chest pain, edema Gastrointestinal: Denies: abdominal pain, nausea, vomiting, diarrhea, constipation Genitourinary: Reports: as per HPI, discharge. Denies: urgency, dysuria, frequency, hematuria Skin: Denies: rash, lesions Past Medical History Past Medical History: No Reported History Additional Past Medical History / Comment(s): migraine headaches History of Any Multi-Drug Resistant Organisms: None Reported Past Surgical History: No Surgical Hx Reported Additional Past Surgical History / Comment(s): lip surgery, cyst removed from belly button, D&C Past Anesthesia/Blood Transfusion Reactions: No Reported Reaction Past Psychological History: ADD/ADHD, Bipolar, Depression Smoking Status: Current every day smoker Past Alcohol Use History: None Reported Past Drug Use History: None Reported General Exam - General Exam Comments Initial Comments: General: The patient is awake and alert, in no distress, and does not appear acutely ill. Eye: Pupils are equal, round and reactive to light, extra-ocular movements are intact. No nystagmus. There is normal conjunctiva bilaterally. No signs of icterus. Ears, nose, mouth and throat: There are moist mucous membranes and no oral lesions. Neck: The neck is supple, there is no tenderness or JVD. Cardiovascular: There is a regular rate and rhythm. No murmur, rub or gallop is appreciated. Respiratory: Lungs are clear to auscultation, respirations are non-labored, breath sounds are equal. No wheezes, stridor, rales, or rhonchi. Gastrointestinal: Soft, non-distended, non-tender abdomen without masses or organomegaly noted. There is no rebound or guarding present. No CVA tenderness. Bowel sounds are unremarkable Neurological: A&O x 3. CN II-XII intact, There are no obvious motor or sensory deficits. Coordination appears grossly intact. Speech is normal. Skin: Skin is warm and dry and no rashes or lesions are noted. Psychiatric: Cooperative, appropriate mood & affect, normal judgment. Pt deferred pelvic exam Limitations: no limitations Course Vital Signs 09/19/17 19:25 Temperature 98.2 F Pulse Rate 94 Respiratory 18 Rate Blood Pressure 109/69 O2 Sat by Pulse 100 Oximetry Medical Decision Making - Medical Decision Making Patient adamantly denies any suicidal or homicidal thoughts or ideations, thoughts or plans of self-harm or increased depression from recent baseline. She states that she has sad because her boyfriend is cheating, but feels this is appropriate emotion. Patient deferred pelvic examination saying that it was painful and she just had one a mother baby floor. She was requesting urine STD check. At this time given patient doesn't think she has symptoms of recurrent STD but is worried because her boyfriend is cheating we will perform a urine STD check and wait for treatment pending results. Patient will follow-up with her [facility] Dr. Tyson in one to 2 days. case was discussed in detail Dr. Treviño who agrees with plan. Pt discharged in stable condition. Disposition Clinical Impression: Concern about STD in female without diagnosis Disposition: HOME SELF-CARE Condition: Good Instructions: Chlamydia (ED) Additional Instructions: PlPlease follow-up with Dr. Herrera in 1-2 days/ Please return to emergency room if the symptoms increase or worsen or for any other concerns. Is patient prescribed a controlled substance at d/c from ED?: No Referrals: Pari Cornejo DO [Primary Care Provider] - 1-2 days Priti Tyson DO [Doctor of Osteopathic Medicine] - 1-2 days Time of Disposition: 19:55
[2017-09-21 13:05] LABS: C. trachomatis,PCR Negative (Neg,Equiv); Chlamydia trachomatis Source Urine; N. gonorrhoeae,PCR Negative (Neg,Equiv); Neisseria Source Urine
== END 2017-09-19 19:59 | disposition home or self-care (01) ==
LOC: EC 19:17
DX: Z20.2 Contact with and (suspected) exposure to infections with a predominantly sexual mode of transmission (principal); O99.333 Smoking (tobacco) complicating pregnancy, third trimester; F17.200 Nicotine dependence, unspecified, uncomplicated; Z88.0 Allergy status to penicillin; Z3A.34 34 weeks gestation of pregnancy
CPT/HCPCS: 87491; 87591; 99283

== ENCOUNTER 2017-10-31 15:13 | Inpatient (IN) | payer OTHER ==
[2017-10-31] MEDS ORDERED: METHYLERGONOVINE 0.2 MG/ML 1 ML AMP IM PRN (15:24)
[2017-10-31] MEDS ORDERED: TERBUTALINE 1 MG/ML VIAL SQ PRN (15:24)
[2017-10-31] MEDS ORDERED: OXYTOCIN 10 UNIT/ML 1 ML VIAL IM PRN (15:24)
[2017-10-31] MEDS ORDERED: CARBOPROST TROMETHAMINE 250 MCG/ML 1 ML AMP IM PRN (15:24)
[2017-10-31] MEDS ORDERED: LIDOCAINE 1% (PF) 10 MG/ML (30 ML SDV) SQ PRN (15:24)
[2017-10-31] MEDS: LACTATED RINGERS 1,000 ML IV SCH ×2 (15:30→19:39)
[2017-10-31] MEDS ORDERED: OXYTOCIN 20 UNITS/1000 ML NS 1,000 ML IV SCH (15:30)
[2017-10-31 15:48] VITALS: BMI 26.6
[2017-10-31 16:08] LABS: Basophils % (A) 0 %; Eosinophils # (A) 0.1 k/uL (0-0.7); Eosinophils % (A) 1 %; HCT 39.3 % (34.0-46.0); HGB 12.3 gm/dL (11.4-16.0); Hypochromasia Slight; Lymphocytes # (A) 1.4 k/uL (1.0-4.8); Lymphocytes % (A) 13 %; MCH 28.6 pg (25.0-35.0); MCHC 31.3 g/dL (31.0-37.0); MCV 91.3 fL (80.0-100.0); Mean Platelet Volume 7.3; Monocytes # (A) 0.5 k/uL (0-1.0); Monocytes % (A) 4 %; Neutrophils % (A) 81 %; Platelet Count 297 k/uL (150-450); RBC 4.31 m/uL (3.80-5.40); RDW 13.4 % (11.5-15.5); WBC 11.1 k/uL (3.8-10.6)
[2017-10-31] MEDS ORDERED: BUTORPHANOL 1 MG/ML 1 ML VIAL IV PRN (16:57)
[2017-10-31] MEDS: CLINDAMYCIN 900 MG in DEXTROSE 5% IN WATER 50 ML IVPB SCH ×2 (17:00)
[2017-10-31 17:30] LABS: Amphetamine Screen,Urine Not Detected (NotDetected); Barbiturate Screen,Urine Not Detected (NotDetected); Benzodiazepines Screen,Urine Not Detected (NotDetected); Cocaine Screen,Urine Not Detected (NotDetected); Methadone Screen, Urine Not Detected (NotDetected); Opiate Screen,Urine Not Detected (NotDetected); Oxycodone Screen, Urine Not Detected (NotDetected); Phencyclidine Screen,Urine Not Detected (NotDetected); Tricyclic Antidepressant,Urine Not Detected (NotDetected); Urn Cannabinoid Scrn Detected (NotDetected)
[2017-10-31] MEDS ORDERED: ROPIVACAINE 5MG/ML 20ML VIAL ONE (19:11)
[2017-10-31] MEDS ORDERED: fentaNYL (PF) 50 MCG/ML 5 ML AMP ONE (19:11)
[2017-10-31] MEDS ORDERED: SODIUM CHLORIDE 0.9% 100 ML BAG ONE (19:11)
[2017-11-01] MEDS: LACTATED RINGERS 1,000 ML IV SCH (00:36)
[2017-11-01] MEDS: CLINDAMYCIN 900 MG in DEXTROSE 5% IN WATER 50 ML IVPB SCH ×2 (00:47)
--- NOTE | 2017-11-01 01:57 | P.HPOB ---
History of Present Illness H&P Date: 10/31/17 Chief Complaint: SROM 22-year-old at 39 weeks and 2 days presented complaining of spontaneous rupture of membranes at 420 in the morning. Her cervix was 1 cm dilated, 80% effaced, and -2 station. She is ngoc irregularly. heart tones 130 -135 with moderate variability and reactive. She did have meconium stained fluid and did not present to labor and delivery until 3:30 in the afternoon. Patient will be admitted for labor. Clindamycin will be started for GBS prophylaxis and Pitocin augmentation will be started as well. Review of Systems All systems: negative Constitutional: Denies chills, Denies fever Eyes: denies blurred vision, denies pain Ears, nose, mouth and throat: Denies headache, Denies sore throat Cardiovascular: Denies chest pain, Denies shortness of breath Respiratory: Denies cough Gastrointestinal: Denies abdominal pain, Denies diarrhea, Denies nausea, Denies vomiting Genitourinary: Denies dysuria, Denies hematuria Musculoskeletal: Denies myalgias Integumentary: Denies pruritus, Denies rash Neurological: Denies numbness, Denies weakness Psychiatric: Denies anxiety, Denies depression Endocrine: Denies fatigue, Denies weight change Past Medical History Past Medical History: No Reported History, GERD/Reflux Additional Past Medical History / Comment(s): migraine headaches. Obstetric history: She has had 2 previous miscarriages. This is her third . She 's had care with me since 9 weeks gestation. Blood type is O+, amylase negative, rubella immune, RPR nonreactive, hepatitis B negative, HIV nonreactive. GBS positive. She did have and the echogenic intracardiac focus on anatomy ultrasound, had normal maternity 21 testing, normal 1 hour glucose tolerance test, normal growth ultrasound at 28 weeks. History of Any Multi-Drug Resistant Organisms: None Reported Past Surgical History: No Surgical Hx Reported Additional Past Surgical History / Comment(s): lip surgery, cyst removed from belly button, D&C Past Anesthesia/Blood Transfusion Reactions: No Reported Reaction Past Psychological History: ADD/ADHD, Depression Smoking Status: Current every day smoker Past Alcohol Use History: None Reported Past Drug Use History: Marijuana Additional Drug Use History / Comment(s): last used a week ago - Past Family History Mother Family Medical History: Renal Disease Medications and Allergies Home Medications Medication Instructions Recorded Confirmed Type No Known Home Medications 09/19/17 10/31/17 History Allergies Allergy/AdvReac Type Severity Reaction Status Date / Time Penicillins Allergy Swelling Verified 10/31/17 15:23 Exam Osteopathic Statement: *. No significant issues noted on an osteopathic structural exam other than those noted in the History and Physical/Consult. Vital Signs Temp Pulse Resp BP Pulse Ox 10/31/17 15:36 97.8 F 96 18 136/81 99 Intake and Output 10/31/17 10/31/17 11/01/17 14:59 22:59 06:59 Intake Total 0 Output Total 200 Balance 1850 Intake: Intake, IV Titration 2049 Amount Clindamycin 900 mg In 50 Dextrose 5% in Water 50 ml @ 50 mls/hr IVPB Q8H GIANNI Rx#:[id number] Lactated Ringers 1,000 ml 2000 @ 125 mls/hr IV .Q8H GIANNI Rx#:[id number] Output: Urine 200 Other: # Voids 2 Weight 63.957 kg Heart: Regular rate and rhythm Lungs: Clear to auscultation bilaterally Abdomen: Soft, nontender Extremities: Negative Homans sign Results Result Diagrams: 10/31/17 15:25 Abnormal Lab Results - Last 24 Hours (Table) 10/31/17 10/31/17 Range/Units 15:25 17:05 WBC 11.1 H (3.8-10.6) k/uL Neutrophils # 9.0 H (1.3-7.7) k/uL U Marijuana (THC) Screen Detected H (NotDetected) Assessment and Plan (1) Spontaneous rupture of amniotic membranes Current Visit: Yes Status: Acute Code(s): [id number] - SNOMED Code(s): 519141480 Plan: 1. Admit to family place 2. Clindamycin for GBS prophylaxis 3. Pitocin augmentation 4. Anticipate normal vaginal delivery
[2017-11-01] MEDS ORDERED: LANOLIN CREAM 5 GM TUBE TOPICAL PRN (03:32)
[2017-11-01] MEDS ORDERED: WITCH HAZEL 1 EACH MED..PAD TOPICAL PRN (03:32)
[2017-11-01] MEDS ORDERED: ZOLPIDEM 5 MG TAB PO PRN (03:32)
[2017-11-01] MEDS ORDERED: diphenhydrAMINE 25 MG CAP PO PRN (03:32)
[2017-11-01] MEDS ORDERED: HYDROcodone/APAP 5-325MG 1 EACH TAB PO PRN (03:32)
[2017-11-01] MEDS ORDERED: HYDROCORTISONE 2.5% RECTAL CREAM 30 GM TUBE RECTAL PRN (03:32)
[2017-11-01] MEDS ORDERED: diphenhydrAMINE 50 MG CAP PO PRN (03:32)
[2017-11-01] MEDS ORDERED: diphenhydrAMINE 50 MG/ML 1 ML VIAL IVP PRN ×2 (03:32)
[2017-11-01] MEDS ORDERED: BENZOCAINE/MENTHOL SPRAY 1 GM/SPRAY AEROSOL TOPICAL PRN (03:32)
[2017-11-01] MEDS ORDERED: ACETAMINOPHEN TAB 325 MG TAB PO PRN (03:32)
[2017-11-01] MEDS ORDERED: SIMETHICONE 80 MG CHEWABLE PO PRN (03:32)
--- NOTE | 2017-11-01 03:32 | P.PROBDLV ---
Vaginal Delivery Note - . Vaginal Delivery Note: 22 year old presents at 39 weeks 2 days with spontaneous rupture of membranes at 420 am. She presented to L&D at 330pm. HEr cervix was 1-2cm dilated, 80% effaced, and -2 station. She was ngoc irregularly. heart tones 130 135 with moderate variability and reactive. Clindamycin was started for GBS prophylaxis and Pitocin augmentation was started. When she was uncomfortable and ngoc every few minutes, and her cervix made change to 2 -1/2 cm, she did get an epidural. She was also noted to have meconium stained fluid. Her cervix was completely dilated by 2:50 AM. She pushed, and delivered a viable female over intact perineum under epidural anesthesia at 3:03 AM. Head delivered OA, anterior shoulder delivered gentle downward guidance followed by posterior shoulder and rest of body. Nose and mouth bulb suctioned, cord clamped and cut, and infant placed on mother's abdomen. Apgars 7, 9, weight 7 lbs. 4 oz. Placenta delivered spontaneously, intact with three- vessel cord at 3:12 AM. Vagina, cervix, and perineum were inspected. Left labial laceration was repaired with 3-0 Vicryl. Estimated blood loss 200 mL. Mother and baby in stable condition.
[2017-11-01] MEDS ORDERED: KETOROLAC 30 MG/ML 1 ML VIAL IVP STA (03:41)
[2017-11-01] MEDS ORDERED: ONDANSETRON 4 MG/2 ML VIAL IVP STA (03:42)
[2017-11-01] MEDS ORDERED: ONDANSETRON 4 MG/2 ML VIAL IVP PRN (03:43)
[2017-11-01] MEDS ORDERED: OXYTOCIN 20 UNITS/1000 ML NS 1,000 ML IV SCH (03:45)
[2017-11-01] MEDS ORDERED: LIDOCAINE 1% INJ 10MG/ML (20 ML MDV) SQ ONE (03:59)
[2017-11-01] MEDS: SENNOSIDES-DOCUSATE SODIUM 1 EACH TAB PO SCH ×2 (07:50→20:05)
[2017-11-01] MEDS: IBUPROFEN 600 MG TAB PO PRN ×2 (07:50→14:43)
[2017-11-01] MEDS ORDERED: DIPH,PERTUS(ACELL)TETVAC-LF 0.5 ML VIAL IM ONE (19:01)
[2017-11-02 02:04] VITALS: RESP 16
[2017-11-02] MEDS: IBUPROFEN 600 MG TAB PO PRN ×2 (04:00→10:15)
--- NOTE | 2017-11-02 08:51 | P.DS ---
Providers Date of admission: 10/31/17 15:13 Expected date of discharge: 11/02/17 Attending physician: Priti Tyson Primary care physician: Priti Tyson - Discharge Diagnosis(es) (1) Spontaneous rupture of amniotic membranes Current Visit: Yes Status: Resolved (2) Normal vaginal delivery Current Visit: Yes Status: Acute Hospital Course: Patient presented was spent denies rupture membranes. She had Pitocin augmentation and underwent a normal vaginal delivery. Her course was uncomplicated. She'll be discharged home day #1 in stable condition to follow-up with me in 6 weeks. Plan - Discharge Summary New Discharge Prescriptions: No Action No Known Home Medications Discharge Medication List No Known Home Medications 09/19/17 [History]
[2017-11-02] MEDS: SENNOSIDES-DOCUSATE SODIUM 1 EACH TAB PO SCH (10:12)
[2017-11-02 10:42] VITALS: BP 117/70; PULSE 81; TEMP 98.1
== END 2017-11-02 13:45 | disposition home or self-care (01) | DRG 775 ==
LOC: 4FBP 15:13
PROVIDERS: ADMIT Obstetrics & Gynecology; ATTEND Obstetrics & Gynecology
PROC: 10E0XZZ Delivery of Products of Conception, External Approach (ICD-10-PCS; principal; 2017-11-01)
PROC: 0HQ9XZZ Repair Perineum Skin, External Approach (ICD-10-PCS; 2017-11-01)
PROC: 00HU33Z Insertion of Infusion Device into Spinal Canal, Percutaneous Approach (ICD-10-PCS; 2017-11-01)
PROC: 3E0R3BZ Introduction of Anesthetic Agent into Spinal Canal, Percutaneous Approach (ICD-10-PCS; 2017-11-01)
DX: O77.0 Labor and delivery complicated by meconium in amniotic fluid (principal); Z37.0 Single live birth; O99.334 Smoking (tobacco) complicating childbirth; F17.200 Nicotine dependence, unspecified, uncomplicated; O99.344 Other mental disorders complicating childbirth; F32.9 Major depressive disorder, single episode, unspecified; F90.9 Attention-deficit hyperactivity disorder, unspecified type; O70.0 First degree perineal laceration during delivery; O99.62 Diseases of the digestive system complicating childbirth; K21.9 Gastro-esophageal reflux disease without esophagitis; G43.909 Migraine, unspecified, not intractable, without status migrainosus; O75.89 Other specified complications of labor and delivery; Z3A.39 39 weeks gestation of pregnancy; Z88.0 Allergy status to penicillin
CPT/HCPCS: 80306; 85025; 88307

== ENCOUNTER 2019-11-07 21:26 | Emergency (ER) | payer OTHER ==
[2019-11-07 21:34] VITALS: BP 127/89; PULSE 92; RESP 18; TEMP 98.1
[2019-11-07] MEDS ORDERED: PRENATAL VIT-IRON-FOLIC ACID 1 EACH CAP PO STA (22:20)
[2019-11-07 23:14] LABS: Appearance,Urine Cloudy (Clear); Bacteria,Urine Rare /hpf; Bilirubin,Urine Negative (Negative); Blood,Urine Large (Negative); Color,Urine Yellow; Glucose,Urine (UA) Negative (Negative); Ketones,Urine Negative (Negative); Leukocyte Esterase,Urine Trace (Negative); Mucus,Urine Few /hpf; Nitrite,Urine Negative (Negative); Protein,Urine Trace (Negative); RBC,Urine 8 /hpf (0-5); Specific Gravity,Urine 1.026 (1.001-1.035); Squamous Epithelial Cell,Urine 9 /hpf (0-4); Urobilinogen,Urine <2.0 mg/dL (<2.0); WBC,Urine 9 /hpf (0-5)
--- NOTE | 2019-11-07 23:25 | US ---
EXAMINATION TYPE: Transabdominal DATE OF EXAM: 11/07/2019 11:10 PM COMPARISON: NONE CLINICAL HISTORY: cramping, spotting . Pt states cramping, light vaginal bleeding EXAM PERFORMED: Transvaginal (TV) and Transabdominal (TA) EXAM MEASUREMENTS: GESTATIONAL AGE / DATING Physician Established: Not yet established Dates by LMP: (5 weeks/2 days) EDC: 07/07/2020 Dates by First Scan: No prior Dates by Current Scan for: (5 weeks/6 days) EDC: 07/03/2020 MATERNAL ANATOMY Uterus: 8.1 x 4.8 x 5.8 cm Right Ovary: 3.1 x 2.3 x 3.5 cm Left Ovary: 3.4 x 2.0 x 1.9 cm Post CDS / Adnexa: wnl Presence of free fluid: No Presence of corpus luteal cyst: Right Ovary= 2.0 x 1.8 x 1.9 cm Presence of subchorionic bleed: No GESTATION / SURVEY CRL: 0.3 cm (5 weeks/6 days) MSD: 0.6 cm Too early to calculate dates, appeared small for CRL dates Yolk Sac (normal less than 6mm): 3mm Heart Rate: 108 bpm Rhythm: Low heart rate IUP: Viable IUP Date of LMP: 10/01/2019 Beta HcG (if available): Not available at this time Single, viable IUP/ Heart rate low/ Gestational sac appeared small for CRL size IMPRESSION: The ultrasound gestational age is 5 weeks and 6 days.
--- NOTE | 2019-11-08 00:16 | ED ---
General Adult HPI - General Chief complaint: Vaginal Bleeding Stated complaint: Vaginal Bleeding Time Seen by Provider: 11/07/19 22:14 Source: patient, RN notes reviewed, old records reviewed Mode of arrival: ambulatory Limitations: no limitations - History of Present Illness Initial comments: 24-year-old female patient presents to ED for evaluation. Patient reports that her menses are irregular however she last had a normal menses in September. She reports her stay. The past 4 days ago and she was positive. States that for the last 2 days she has had a little bit of spotting and some waxing and waning cramping. Denies any other complaints. She blood type O positive. Systemic: Pt denies fatigue, fever/chills, rash. Pt denies weakness, night swe ats, weight loss. Neuro: Pt denies headache, visual disturbances, syncope or pre-syncope. HEENT: Pt denies ocular discharge or irritation, otalgia, rhinorrhea, pharyngitis or notable lymphadenopathy. Cardiopulmonary: Pt denies chest pain, SOB, heart palpitations, dyspnea on exertion. Abdominal/GI: Pt denies abdominal pain, n/v/d. : Pt denies dysuria, burning w/ urination, frequency/urgency. Denies new onset urinary or bowel incontinence. MSK: Pt denies myalgia, loss of strength or function in extremities. Neuro: Pt denies new onset weakness, paresthesias. - Related Data Previous Rx's Medication Instructions Recorded Ibuprofen [Motrin] 600 mg PO Q6HR PRN #30 tab 11/02/17 Pnv No.95/Ferrous Fum/Folic AC 1 each PO Q24HR 30 Days #30 tablet 11/08/19 [ Multivitamin Tablet] Allergies Allergy/AdvReac Type Severity Reaction Status Date / Time Penicillins Allergy Swelling Verified 11/07/19 21:34 Review of Systems ROS Statement: Those systems with pertinent positive or pertinent negative responses have been documented in the HPI. ROS Other: All systems not noted in ROS Statement are negative. Past Medical History Past Medical History: No Reported History, GERD/Reflux Additional Past Medical History / Comment(s): migraine headaches. Obstetric history: She has had 2 previous miscarriages. This is her third . She's had care with me since 9 weeks gestation. Blood type is O+, amylase negative, rubella immune, RPR nonreactive, hepatitis B negative, HIV nonreactive. GBS positive. She did have and the echogenic intracardiac focus on anatomy ultrasound, had normal maternity 21 testing, normal 1 hour glucose tolerance test, normal growth ultrasound at 28 weeks. History of Any Multi-Drug Resistant Organisms: None Reported Past Surgical History: No Surgical Hx Reported Additional Past Surgical History / Comment(s): lip surgery, cyst removed from belly button, D&C Past Anesthesia/Blood Transfusion Reactions: No Reported Reaction Past Psychological History: ADD/ADHD, Depression Smoking Status: Never smoker Past Alcohol Use History: None Reported Past Drug Use History: Marijuana - Past Family History Mother Family Medical History: Renal Disease General Exam - General Exam Comments Initial Comments: Constitutional: NAD, AOX3, Pt has pleasant affect. HEENT: NC/AT, trachea midline, neck supple, no lymphadenopathy. External ears appear normal, without discharge. Mucous membranes moist. Eyes PERRLA, EOM intact. There is no scleral icterus. No pallor noted. Cardiopulmonary: RRR, no murmurs, rubs or gallops, no JVD noted. Lungs CTAB in anterior and posterior cash. No peripheral edema. Abdominal exam: Abdomen soft and non-distended. Abdomen non-tender to palpation in all 4 quadrants. Bowel sounds active in LLQ. No hepatosplenomegaly. No ecchymosis Neuro: CN II-XII grossly intact. MSK: Full active ROM in upper and lower extremities, 5/5 stregnth. Limitations: no limitations Course Vital Signs 11/07/19 21:29 Temperature 98.1 F Pulse Rate 92 Respiratory 18 Rate Blood Pressure 127/89 O2 Sat by Pulse 100 Oximetry Medical Decision Making - Medical Decision Making 24-year-old female patient who is . Presents to ED for some vaginal spotting and cramping. No discomfort at this time. Patient abdomen soft and nontender. Ultrasound displayed viable . UA is contaminated by squamous cells, will be cultured. Patient prescribed vitamins of discharge and outpatient [facility] follow-up. Case discussed with Dr. Drake. - Lab Data Lab Results 11/07/19 11/07/19 Range/Units 22:44 22:44 Urine Color Yellow Urine Appearance Cloudy H (Clear) Urine pH 6.0 (5.0-8.0) Ur Specific [place] 1.026 (1.001-1.035) Urine Protein Trace H (Negative) Urine Glucose (UA) Negative (Negative) Urine Ketones Negative (Negative) Urine Blood Large H (Negative) Urine Nitrite Negative (Negative) Urine Bilirubin Negative (Negative) Urine Urobilinogen <2.0 (<2.0) mg/dL Ur Leukocyte Esterase Trace H (Negative) Urine RBC 8 H (0-5) /hpf Urine WBC 9 H (0-5) /hpf Ur Squamous Epith Cells 9 H (0-4) /hpf Urine Bacteria Rare H (None) /hpf Urine Mucus Few H (None) /hpf Urine HCG, Qual Detected (Not Detectd) Disposition Clinical Impression: Vaginal bleeding during Disposition: HOME SELF-CARE Condition: Stable Instructions (If sedation given, give patient instructions): Threatened Miscarriage (ED) Additional Instructions: Take vitamins as directed. Follow-up with primary care provider tomorrow. Follow up with metal dresser tomorrow. Return to ER if any worsening symptoms. Prescriptions: Pnv No.95/Ferrous Fum/Folic AC [ Multivitamin Tablet] 1 each PO Q24HR 30 Days #30 tablet Is patient prescribed a controlled substance at d/c from ED?: No Referrals: None,Stated [Primary Care Provider] - 1-2 days
== END 2019-11-08 00:32 | disposition home or self-care (01) ==
LOC: EC 21:26
DX: O20.9 Hemorrhage in early pregnancy, unspecified (principal); Z88.0 Allergy status to penicillin; Z87.59 Personal history of other complications of pregnancy, childbirth and the puerperium; Z3A.01 Less than 8 weeks gestation of pregnancy
CPT/HCPCS: 81001; 81025; 87086; 76801; 76817; 99284; S0197

== ENCOUNTER 2019-11-12 14:57 | Emergency (ER) | payer OTHER ==
[2019-11-12 15:21] VITALS: TEMP 98.3
[2019-11-12 16:05] LABS: Basophils % (A) 1 %; Eosinophils # (A) 0.1 k/uL (0-0.7); Eosinophils % (A) 1 %; HGB 13.2 gm/dL (11.4-16.0); Lymphocytes % (A) 24 %; MCHC 32.2 g/dL (31.0-37.0); MCV 93.1 fL (80.0-100.0); Mean Platelet Volume 6.8; Monocytes # (A) 0.5 k/uL (0-1.0); Monocytes % (A) 6 %; Neutrophils # (A) 5.8 k/uL (1.3-7.7); Neutrophils % (A) 67 %; Platelet Count 314 k/uL (150-450); RBC 4.41 m/uL (3.80-5.40); RDW 11.6 % (11.5-15.5); WBC 8.6 k/uL (3.8-10.6)
--- NOTE | 2019-11-12 16:07 | ED ---
General Adult HPI - General Chief complaint: Abdominal Pain Stated complaint: , Vaginal Bleeding Time Seen by Provider: 11/12/19 15:26 Source: patient, RN notes reviewed Mode of arrival: wheelchair Limitations: no limitations - History of Present Illness Initial comments: 24-year-old female presents to the emergency department for a chief complaint of vaginal bleeding. Patient believes she is about 6 weeks . She reports that she has been vaginally bleeding for about 6 days on and off. Patient reports she does have a confirmed intrauterine . Patient states she is now passing some mild clots and cramping more. Patient denies passing any tissue. Denies lightheadedness.Patient has no other complaints at this time including shortness of breath, chest pain, abdominal pain, nausea or vomiting, headache, or visual changes. - Related Data Previous Rx's Medication Instructions Recorded Ibuprofen [Motrin] 600 mg PO Q6HR PRN #30 tab 11/02/17 Pnv No.95/Ferrous Fum/Folic AC 1 each PO Q24HR 30 Days #30 tablet 11/08/19 [ Multivitamin Tablet] Allergies Allergy/AdvReac Type Severity Reaction Status Date / Time Penicillins Allergy Swelling Verified 11/12/19 15:20 Review of Systems ROS Statement: Those systems with pertinent positive or pertinent negative responses have been documented in the HPI. ROS Other: All systems not noted in ROS Statement are negative. Past Medical History Past Medical History: No Reported History, GERD/Reflux Additional Past Medical History / Comment(s): migraine headaches History of Any Multi-Drug Resistant Organisms: None Reported Past Surgical History: No Surgical Hx Reported Additional Past Surgical History / Comment(s): lip surgery, cyst removed from belly button, D&C Past Anesthesia/Blood Transfusion Reactions: No Reported Reaction Past Psychological History: ADD/ADHD, Depression Smoking Status: Never smoker Past Alcohol Use History: None Reported Past Drug Use History: Marijuana - Past Family History Mother Family Medical History: Renal Disease General Exam Limitations: no limitations General appearance: alert, in no apparent distress Head exam: Present: atraumatic, normocephalic, normal inspection Eye exam: Present: normal appearance, PERRL, EOMI. Absent: scleral icterus, conjunctival injection, periorbital swelling ENT exam: Present: normal exam, mucous membranes moist Neck exam: Present: normal inspection, full ROM. Absent: tenderness, meningismus, lymphadenopathy Respiratory exam: Present: normal lung sounds bilaterally. Absent: respiratory distress, wheezes, rales, rhonchi, stridor Cardiovascular Exam: Present: regular rate, normal rhythm, normal heart sounds. Absent: systolic murmur, diastolic murmur, rubs, gallop, clicks GI/Abdominal exam: Present: soft, normal bowel sounds. Absent: distended, tenderness, guarding, rebound, rigid External exam: Present: normal external exam, other (Candida VOSS present on exam). Absent: erythema, swelling, lesions, lacerations, ecchymosis Speculum exam: Present: vaginal bleeding (Minimal vaginal bleeding noted). Absent: erythema, vaginal discharge, cervical discharge, foreign body, tissue, laceration By manual exam: Present: normal by manual exam. Absent: cervical motion tenderness, adnexal tenderness, adnexal mass, uterine enlargement, uterine tenderness Course Vital Signs 11/12/19 15:18 Temperature 98.3 F Pulse Rate 96 Respiratory 18 Rate Blood Pressure 121/82 O2 Sat by Pulse 98 Oximetry Medical Decision Making - Medical Decision Making Vitals are stable. HPI physical exam is documented. CBC CMP unremarkable. Ultrasound however does show a single intrauterine pole which would measure 6 weeks however cardiac activity is not identified. Yolk sac appears atypical. Intrauterine demise or early should be considered. Patient was noted to have an ultrasound about one week ago that did show cardiac activity. Case was discussed with Dr. Tyson, will see patient on Sunday. She was given return parameters. She will be treated for a urinary tract infection until culture results. - Lab Data Result diagrams: 11/12/19 15:39 11/12/19 15:45 Lab Results 11/12/19 11/12/19 11/12/19 Range/Units 15:39 15:39 15:45 WBC 8.6 (3.8-10.6) k/uL RBC 4.41 (3.80-5.40) m/uL Hgb 13.2 (11.4-16.0) gm/dL Hct 41.0 (34.0-46.0) % MCV 93.1 (80.0-100.0) fL MCH 30.0 (25.0-35.0) pg MCHC 32.2 (31.0-37.0) g/dL RDW 11.6 (11.5-15.5) % Plt Count 314 (150-450) k/uL Neutrophils % 67 % Lymphocytes % 24 % Monocytes % 6 % Eosinophils % 1 % Basophils % 1 % Neutrophils # 5.8 (1.3-7.7) k/uL Lymphocytes # 2.0 (1.0-4.8) k/uL Monocytes # 0.5 (0-1.0) k/uL Eosinophils # 0.1 (0-0.7) k/uL Basophils # 0.0 (0-0.2) k/uL Sodium 139 (137-145) mmol/L Potassium 3.8 (3.5-5.1) mmol/L Chloride 104 (98-107) mmol/L Carbon Dioxide 27 (22-30) mmol/L Anion Gap 8 mmol/L BUN 14 (7-17) mg/dL Creatinine 0.61 (0.52-1.04) mg/dL Est GFR (CKD-EPI)AfAm >90 (>60 ml/min/1.73 sqM) Est GFR (CKD-EPI)NonAf >90 (>60 ml/min/1.73 sqM) Glucose 87 (74-99) mg/dL Calcium 9.8 (8.4-10.2) mg/dL Total Bilirubin 0.4 (0.2-1.3) mg/dL AST 19 (14-36) U/L ALT 11 (4-34) U/L Alkaline Phosphatase 40 (38-126) U/L Total Protein 7.6 (6.3-8.2) g/dL Albumin 5.0 (3.5-5.0) g/dL Amylase 55 (30-110) U/L Lipase 60 (23-300) U/L HCG, Quant 1095.9 mIU/mL Urine Color Red Urine Appearance Bloody H (Clear) Urine RBC >182 H (0-5) /hpf Urine WBC 154 H (0-5) /hpf Trichomonas Ag (Rapid) (Negative) 11/12/19 Range/Units 15:56 WBC (3.8-10.6) k/uL RBC (3.80-5.40) m/uL Hgb (11.4-16.0) gm/dL Hct (34.0-46.0) % MCV (80.0-100.0) fL MCH (25.0-35.0) pg MCHC (31.0-37.0) g/dL RDW (11.5-15.5) % Plt Count (150-450) k/uL Neutrophils % % Lymphocytes % % Monocytes % % Eosinophils % % Basophils % % Neutrophils # (1.3-7.7) k/uL Lymphocytes # (1.0-4.8) k/uL Monocytes # (0-1.0) k/uL Eosinophils # (0-0.7) k/uL Basophils # (0-0.2) k/uL Sodium (137-145) mmol/L Potassium (3.5-5.1) mmol/L Chloride (98-107) mmol/L Carbon Dioxide (22-30) mmol/L Anion Gap mmol/L BUN (7-17) mg/dL Creatinine (0.52-1.04) mg/dL Est GFR (CKD-EPI)AfAm (>60 ml/min/1.73 sqM) Est GFR (CKD-EPI)NonAf (>60 ml/min/1.73 sqM) Glucose (74-99) mg/dL Calcium (8.4-10.2) mg/dL Total Bilirubin (0.2-1.3) mg/dL AST (14-36) U/L ALT (4-34) U/L Alkaline Phosphatase (38-126) U/L Total Protein (6.3-8.2) g/dL Albumin (3.5-5.0) g/dL Amylase (30-110) U/L Lipase (23-300) U/L HCG, Quant mIU/mL Urine Color Urine Appearance (Clear) Urine RBC (0-5) /hpf Urine WBC (0-5) /hpf Trichomonas Ag (Rapid) Negative (Negative) Disposition Clinical Impression: Urinary tract infection, Incomplete miscarriage Disposition: HOME SELF-CARE Condition: Good Instructions (If sedation given, give patient instructions): Miscarriage (ED) Additional Instructions: Please call tomorrow for an appointment on Sunday with Dr. Tyson. If you have worsening symptoms such as increased bleeding or lightheadedness return to the emergency room. Is patient prescribed a controlled substance at d/c from ED?: No Referrals: Priti Tyson DO [Doctor of Osteopathic Medicine] - 1-2 days Time of Disposition: 18:30
[2019-11-12 16:13] LABS: RBC,Urine >182 /hpf (0-5); WBC,Urine 154 /hpf (0-5)
[2019-11-12 16:13] LABS: ALT 11 U/L (4-34); AST 19 U/L (14-36); African American GFR (CKD) >90 (>60 ml/min/1.73 sqM); Alkaline Phosphatase 40 U/L (38-126); Amylase 55 U/L (30-110); Anion Gap 8 mmol/L; Blood Urea Nitrogen 14 mg/dL (7-17); Calcium 9.8 mg/dL (8.4-10.2); Carbon Dioxide 27 mmol/L (22-30); Chloride 104 mmol/L (98-107); Glucose 87 mg/dL (74-99); Non-African American GFR(CKD) >90 (>60 ml/min/1.73 sqM); Potassium 3.8 mmol/L (3.5-5.1); Sodium 139 mmol/L (137-145); Total Bilirubin 0.4 mg/dL (0.2-1.3); Total Protein 7.6 g/dL (6.3-8.2)
[2019-11-12 16:15] LABS: Appearance,Urine Bloody (Clear); Color,Urine Red
[2019-11-12 16:29] LABS: HCG,Quantitative Serum 1095.9 mIU/mL
--- NOTE | 2019-11-12 18:14 | US ---
EXAMINATION TYPE: Transabdominal DATE OF EXAM: 11/12/2019 4:48 PM COMPARISON: US CLINICAL HISTORY: 6wks , bleeding, pain. Pelvic pain with vaginal bleeding in ; EXAM PERFORMED: Transvaginal (TV) and Transabdominal (TA) EXAM MEASUREMENTS: GESTATIONAL AGE / DATING Physician Established: Not yet established Dates by LMP: LMP unknown Dates by First Scan: (6 weeks/5 days) EDC: 07/03/2020 Dates by Current Scan for: (6 weeks/0 days) EDC: no heart rate detected in single IUP noted mid lower endometrium MATERNAL ANATOMY Uterus: 8.2 x 4.4 x 4.9cm Right Ovary: 5.1 x 2.7 x 2.1cm; color flow is noted within ovary Left Ovary: 3.6 x 1.9 x 2.4cm, color flow is noted within ovary Post CDS / Adnexa: wnl Presence of free fluid: no Presence of corpus luteal cyst: in right ovary as solid oval area = 1.8 x 1.7 x 1.3cm Presence of subchorionic bleed: yes, superior to gestational sac = 0.7 0.4 x 0.3cm GESTATION / SURVEY CRL: 3.5mm (6 weeks/0 days) Yolk Sac (normal less than 6mm): appears collapsed Heart Rate: none detected by PW Color, color Flow or PW Doppler IUP: single IUP with irregular gestational sac and irregular appearance to yolk sac located in mid l ower uterus, instead of in normal location of upper uterus. Date of LMP: unsure Beta HcG (if available): NA IMPRESSION: 1. Single intrauterine pole which would measure at 6 weeks 0 days by measurement criteria. Card iac activity however is not identified. Yolk sac appears atypical. Intrauterine demise or early should be considered. Correlate with the beta hCG. 2. Subchorionic hemorrhage adjacent superior to the gestational sac.
[2019-11-12 18:38] VITALS: BP 115/62; PULSE 79; RESP 16
== END 2019-11-12 18:38 | disposition home or self-care (01) ==
LOC: EC 14:57
DX: O03.4 Incomplete spontaneous abortion without complication (principal); O03.38 Urinary tract infection following incomplete spontaneous abortion; Z3A.01 Less than 8 weeks gestation of pregnancy; Z88.0 Allergy status to penicillin
CPT/HCPCS: 36415; 76801; 76817; 80053; 81001; 82150; 83690; 84702; 85025; 87086; 87491; 87591; 87808; 99284

== ENCOUNTER → 2021-04-29 | Outpatient (CLI) | payer OTHER ==
--- NOTE | 2021-04-29 11:10 | US ---
EXAMINATION TYPE: US thyroid st tissue head/neck DATE OF EXAM: 04/29/2021 COMPARISON: NONE CLINICAL HISTORY: R44.8. Patient states family hx of thyroid cancer GLAND SIZE: Right Lobe: 3.2 x 1.4 x 1.1 cm Overall Parenchyma: homogenous Left Lobe: 3.2 x 1.4 x 1.1 cm Overall Parenchyma: homogeneous Isthmus Thickness: 0.2 cm NODULES RIGHT: # of nodules measured on right: 0 LEFT: # of nodules measured on left: 0 ISTHMUS: # of nodules measured in the isthmus: 0 Bilateral neck scanned, no evidence of lymphadenopathy. IMPRESSION: No discrete abnormality appreciated at this time.
== END | disposition home or self-care (01) ==
LOC: RADUSWWP 10:40
PROVIDERS: ATTEND Family Medicine
DX: R44.8 Other symptoms and signs involving general sensations and perceptions (principal)
CPT/HCPCS: 76536

== ENCOUNTER → 2022-05-05 | Outpatient (CLI) | payer OTHER ==
--- NOTE | 2022-05-05 15:39 | USB ---
Reason for Exam: Clinical finding. Technique: Method: Targeted. Findings: The upper outer quadrant of the right breast, the axilla of the right breast and the retroareolar of the right breast were scanned. Targeted ultrasound of the right breast from 9-12 o'clock with additional evaluation of the retroareolar region and axilla was performed. No solid or cystic lesion identified. Overall Assessment: Negative, BI-RAD 1 Management: Screening Mammogram of both breasts at age 40. Clinical management for patient's symptomology. A clinical breast exam by your physician is recommended on an annual basis and results should be correlated with mammographic findings. This exam should not preclude additional follow-up of suspicious palpable abnormalities. Results were given to the patient verbally at the time of exam. Electronically signed and approved by: Pranay Ramirez D.O.
== END | disposition home or self-care (01) ==
LOC: RADUSWWP 15:09
PROVIDERS: ATTEND Family Medicine
DX: N63.10 Unspecified lump in the right breast, unspecified quadrant (principal)

== ENCOUNTER → 2022-07-13 | Outpatient (CLI) | payer OTHER ==
[2022-07-13 11:39] VITALS: BP 129/87; PULSE 74; RESP 16; TEMP 98.1
--- NOTE | 2022-07-13 11:39 | P.GSHP ---
History of Present Illness H&P Date: 07/13/22 Chief Complaint: nipple discharge right breast Heather is a 27 year old white female seen in consultation for Mayda Barrett regarding right breast nipple discharge. [place] [id number] which did not reveal any specific lesions of concern. This was considered BIRADS 1 and screening mammogram of both breasts of 40 was recommended. The patient is complaining of a nodule in the right breast which has increased in size. It is in aaron upper outer quadrant of the breast, it has been present for several years. It is more sore with her periods. She is on control pills which she just started 2 months ago. She has not noted any change in the nodularity of her breast in association with the control pills. She also notes some nodularity in her left breast recently. She has had some right nipple discharge with manipulation. No blood was noted, the discharge was yellow/oragnge. She has not had any recent trauma or infection of her breast. Note Mayda Barrett 05-26-22 reviewed Caffiene: occasional nicotine: vape,800 hits and lasts 1-2 weeks chocolate: occasional BCP: just started 2 months ago Family History: paternal grandmother: thyroid cancer paternal cousin: breast cancer from this maternal grandfather: lung cancer Hormonal History: menarche: 16 M3, breat fed: yes, age at :23 periods irregular, LMP: now Surgical History: upper lip plastic surgery cyst at umbilicus attached to intestine D&C 2 Medical History: none Social History: Nicotine: As above Alcohol: Occasional Drugs: Negative - Constitutional Constitutional: Reports sweats - EENT Eyes: right pain Ears: deny: decreased hearing, tinnitus Ears, nose, mouth and throat: Reports headache - Breasts Breasts: bilateral: as per HPI - Cardiovascular Cardiovascular: Denies chest pain, Denies shortness of breath - Respiratory Respiratory: Reports as per HPI - Gastrointestinal Gastrointestinal: Reports constipation, Denies abdominal pain, Denies diarrhea, Denies nausea, Denies vomiting - Genitourinary (Female) Genitourinary: Denies dysuria, Denies hematuria - Menstruation Menstruation: Reports as per HPI - Musculoskeletal Comment: arthritid in ankles Musculoskeletal: Denies myalgias - Integumentary Integumentary: Denies pruritus, Denies rash - Neurological Neurological: Denies numbness, Denies weakness - Psychiatric Psychiatric: Reports anxiety, Reports depression - Endocrine Endocrine: Denies fatigue, Denies weight change - Hematologic/Lymphatic Comment: none - Allergic/Immunologic Allergic/Immunologic: Reports as per HPI, Reports seasonal allergies Past Medical History Past Medical History: No Reported History, GERD/Reflux Additional Past Medical History / Comment(s): migraine headaches History of Any Multi-Drug Resistant Organisms: None Reported Past Surgical History: No Surgical Hx Reported Additional Past Surgical History / Comment(s): lip surgery, cyst removed from belly button, D&C Past Anesthesia/Blood Transfusion Reactions: No Reported Reaction Past Psychological History: ADD/ADHD, Depression Smoking Status: Never smoker Past Alcohol Use History: None Reported Past Drug Use History: Marijuana - Past Family History Mother Family Medical History: Renal Disease Medications and Allergies Home Medications Medication Instructions Recorded Confirmed Type Ibuprofen [Motrin] 600 mg PO Q6HR PRN #30 tab 11/02/17 07/13/22 Rx Pnv No.95/Ferrous Fum/Folic AC 1 each PO Q24HR 30 Days #30 tablet 11/08/19 07/13/22 Rx [ Multivitamin Tablet] Allergies Allergy/AdvReac Type Severity Reaction Status Date / Time Penicillins Allergy Swelling Verified 11/12/19 15:20 Surgical - Exam - General no distress - Eyes normal ocular movement - ENT no hearing loss - Neck trachea midline - Respiratory normal respiratory effort, clear to auscultation - Cardiovascular Rhythm: regular Heart Sounds: normal: S1, S2 - Abdomen Abdomen: soft, non tender, no guarding, no rigid, no rebound - Integumentary normal turgor - Neurologic no disoriented, no combative - Musculoskeletal normal gait, normal posture - Psychiatric oriented to time, oriented to person, oriented to place, speech is normal, memory intact Breast Exam: BRA: 32B or C inspection: Bilateral grade 1 ptosis Palpation: Right breast: Multi-positional exam dense fibroglandular tissue, no discrete dominant masses or nodules of concern, there is increased breast tissue in the upper outer quadrant area on the right Right axilla: No adenopathy of concern Left breast: Dense fibroglandular tissue, no discrete dominant masses or nodules of concern Left axilla: No adenopathy of concern no nipple discharge on today's examination Results Result of ultrasound reviewed Assessment and Plan Assessment: Impression: Fibrocystic breast changes with mastodynia Plan: Consider lifestyle modification which would include stopping vague Consider if control pills may be exacerbating the breast pain Repeat ultrasound of the breast in 6 months with examination at that time CC: Mayda Barrett
== END ==
LOC: WWCWWP 11:05
PROVIDERS: ATTEND Surgery
DX: N64.52 Nipple discharge (principal); N60.12 Diffuse cystic mastopathy of left breast; N60.11 Diffuse cystic mastopathy of right breast; N63.10 Unspecified lump in the right breast, unspecified quadrant; N64.4 Mastodynia; Z88.0 Allergy status to penicillin; F17.200 Nicotine dependence, unspecified, uncomplicated

== ENCOUNTER → 2023-05-18 | Outpatient (CLI) | payer OTHER ==
--- NOTE | 2023-05-18 11:16 | USB ---
Reason for Exam: Clinical finding. Technique: Method: Whole Breast Handheld. Prior Study Comparison: 05/05/2022 Right US breast limited RT, [facility]. Findings: The whole breast of the right breast, the axilla of the right breast and the retroareolar of the right breast were scanned. No solid or cystic masses are identified within the breast. Within the right axilla at a palpable area for the last 2 weeks there is a prominent lymph node with thickened cortex. The cortex measures 0.4 cm. Normal less than 0.3 cm. Patient reports no recent infections or vaccinations. Findings are likely related to reactive lymph node. Monitoring of the right axilla however is recommended.. Overall Assessment: Probably benign, BI-RAD 3 Management: Diagnostic Breast Ultrasound of the right breast in 3 months. A clinical breast exam by your physician is recommended on an annual basis and results should be correlated with mammographic findings. This exam should not preclude additional follow-up of suspicious palpable abnormalities. Results were given to the patient verbally at the time of exam. Electronically signed and approved by: John Abreu D.O. Radiologis
== END | disposition home or self-care (01) ==
LOC: RADUSWWP 09:38
PROVIDERS: ATTEND Surgery
DX: N64.4 Mastodynia (principal)